=== PATIENT | female | born 2005 | race Caucasian/White ===

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

== ENCOUNTER → 2023-01-07 12:59 | Outpatient (CLI) | payer OTHER, BC, SELFPAY ==
--- NOTE | 2023-01-07 13:03 | US_ITS ---
FINAL REPORT CLINICAL HISTORY: PELVIC AND PERINEAL PAIN FINDINGS: Transvaginal sonographic images of the pelvis were obtained. The uterus measures 8.4 x 4.6 x 3.4 cm. The endometrium measures 8 mm, which is within normal limits. No uterine mass is identified. The right ovary measures 2.7 cm in length and left ovary measures 3.4 cm in length. Normal blood flow seen to the ovaries. There are small cysts or follicles in both ovaries. There is a small amount of free fluid in the cul-de-sac which is probably physiologic. IMPRESSION: Small cysts or follicles in both ovaries. Small amount of free fluid in cul-de-sac is probably physiologic. Reviewed, Interpreted and Dictated by Mark Collazo MD Transcribed by Johanna Sinclair Authenticated and [facility]
== END ==
PROVIDERS: PCP Nurse Practitioner Family; Visit Provider Nurse Practitioner Family
DX: R10.2 Pelvic and perineal pain (principal)
CPT/HCPCS: 76830

== ENCOUNTER 2023-01-26 01:40 | Emergency (ER) | payer OTHER, BC, SELFPAY ==
[2023-01-26 01:43] VITALS: BP 131/76; PULSE 97; RESP 16; TEMP 36.8; O2SAT 99; BMI 27.6
[2023-01-26 02:11] LABS: Coronavirus 19, PCR Not Detected (NotDetected); Influenza A, PCR Not Detected (NotDetected); Influenza B, PCR Not Detected (NotDetected)
[2023-01-26 02:18] LABS: Strep Scrn Group A (Rapid) Negative (Negative)
[2023-01-26 02:33] LABS: Urine Pregnancy, HCG Qual. Positive (Negative)
--- NOTE | 2023-01-26 02:51 | HMH.EDURI ---
Discharge Plan Disposition Patient Disposition: Home, Self-Care Chief Complaint: Upper Respiratory Infection Prescriptions Prescriptions: No Action Zyrtec 10 mg capsule 10 mg PO DAILY PRN ergocalciferol (vitamin D2) 1,250 mcg (50,000 unit) capsule 1,250 mcg PO DAILY Nexplanon 68 mg implant subdermal Referrals Follow up/Referrals: Marcello Box APRN [Primary Care Provider] - See instructions Kelley Roberts DO [Staff Physician] - See instructions Clinical Impressions Clinical Impression: Pharyngitis, Instructions Patient Instructions: Diet, DI for Pharyngitis/Tonsillopharyngitis -- Adult Discharge ED Provider: Ramiro (ED)Dinesh URI/Sore Throat HPI General Chief Complaint: Upper Respiratory Infection Stated Complaint: sore throat,nausea,chills,cough Time Seen by Provider: 01/26/23 02:51 Mode of Arrival: Ambulatory Source of Information: Patient and Medical Record Limitations: No Limitations Description of Symptoms (Recalled from ER Triage Doc. by RN): Pt arrives to ED with c/o a cough, sore throat, nausea and a runny nose since that has gotten progressively worse. Denies vomiting. 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 few days assoc with nausea - no rash but has nausea MD Complaint: sore throat Onset (ago): day(s) Duration: intermittent Severity: moderate Able to tolerate fluids by mouth: Yes Associated symptoms: denies other symptoms Treatments prior to arrival: acetaminophen Related Data Home Medications Medication Instructions Recorded Confirmed cetirizine 10 mg capsule (Zyrtec) 10 mg PO DAILY PRN 10/16/21 11/20/22 ergocalciferol (vitamin D2) 1,250 1,250 mcg PO DAILY 11/20/22 11/20/22 mcg (50,000 unit) capsule etonogestrel 68 mg subdermal subdermal 11/20/22 11/20/22 implant (Nexplanon) Allergies Allergy/AdvReac Type Severity Reaction Status Date / Time No Known Allergies Allergy Verified 11/20/22 09:22 [facility] Disclaimer: The information contained in this section may have been updated after the patient was seen, as this information can be updated by other users. Medical History (Updated 04/10/23 @ 02:57 by Dinesh Rubio (ED)MD) Deep dyspareunia Dysmenorrhea Encounter for Nexplanon removal Endometriosis History of hypothyroidism Surgical History History of tonsillectomy Family History Other Asthma Diabetes Heart attack Hypertension Social History Smoking Status: Never smoker alcohol intake: never substance use type: denies use current occupational status: student Travel in the last 8 weeks: None household members: family housing: house ROS Obtained: Yes All systems reviewed & no additional complaints except as documented Physical Exam General General appearance: alert Head Head exam: normocephalic Eye Eye exam: Present PERRL and EOMI ENT ENT exam: Present normal oropharynx and mucous membranes moist Neck Neck exam: Present trachea midline Respiratory Respiratory exam: Absent respiratory distress Cardiovascular Cardiovascular exam: Present regular rate Abdominal Exam Abdominal exam: Present soft Extremities Exam Extremities exam: Present full ROM Neurological Exam Neurological exam: Present alert, oriented X3 and CN II-XII intact; Absent motor sensory deficit Psychiatric Psychiatric exam: Present normal affect Skin Skin exam: Absent rash Lymphatic Lymphatic Findings: no adenopathy Medical Decision Making Medical Records Medical records reviewed: Yes I reviewed the patient's medical records. Carlos Inquiry Pt receiving controlled substance: No Vital Signs: 01/26/23 01:43 Temperature 98.3 F Temperature Source Oral Pulse Rate [Right] 97 H Respiratory Rate 16
[2023-01-26 03:08] VITALS: BP 112/68; PULSE 67; RESP 16; TEMP 37; O2SAT 98
== END 2023-01-26 03:10 | disposition home or self-care (01) ==
PROVIDERS: Emergency Provider Emergency Medicine; PCP Nurse Practitioner Family
DX: O26.891 Other specified pregnancy related conditions, first trimester (principal); J02.9 Acute pharyngitis, unspecified; Z3A.00 Weeks of gestation of pregnancy not specified
CPT/HCPCS: 81025; 87430; 99283; 99284; C9803; U0003; U0005

== ENCOUNTER → 2023-01-27 14:54 | Outpatient (CLI) | payer OTHER, BC, SELFPAY ==
[2023-01-27 16:10] LABS: HCG,Quantitative 12124 mIU/ml (0-5.42)
[2023-01-29 10:33] LABS: Progesterone 10.1 ng/mL (.)
== END ==
PROVIDERS: PCP Nurse Practitioner Family; Visit Provider Obstetrics & Gynecology
DX: N92.6 Irregular menstruation, unspecified (principal); Z32.00 Encounter for pregnancy test, result unknown
CPT/HCPCS: 36415; 84144; 84702

== ENCOUNTER → 2023-02-16 16:41 | Outpatient (CLI) | payer OTHER, BC, SELFPAY ==
[2023-02-16 17:25] LABS: Basophils % 0.2 % (0.1-2.0); Eosinophils # 0.1 K/mm3 (0.0-0.4); Eosinophils % 0.6 % (0.1-12.0); Hematocrit 37.9 % (37.0-47.0); Hemoglobin 12.8 g/dL (12.2-16.2); Lymphocytes # 2.3 K/mm3 (0.7-4.5); Lymphocytes % 23.1 % (10-50); Mean Corpuscular HGB Conc 33.9 g/dL (31.8-35.4); Mean Corpuscular Hemoglobin 29.1 pg (27.0-31.2); Mean Corpuscular Volume 85.9 fl (81-99); Mean Platelet Volume 8.2 fl (7.4-10.4); Monocytes # 0.4 K/mm3 (0.1-1.0); Monocytes % 4.2 % (1.7-9.3); Neutrophils # 7.1 K/mm3 (1.8-7.8); Neutrophils % 71.8 % (37.0-80.0); Platelet Count 249 K/mm3 (142-424); Red Blood Count 4.41 M/mm3 (4.20-5.40); Red Cell Distribution Width 14.1 % (11.5-17.5); White Blood Count 9.9 K/mm3 (4.5-13.0)
[2023-02-18 10:05] LABS: Rubella Antibodies, IgG 9.49 index (Immune >0.99)
[2023-02-18 13:51] LABS: Rapid Plasma Reagin Ab Titer Non Reactive (NonRea<1:1)
[2023-02-19 21:16] LABS: Neisseria gonorrhoeae, NAA Negative (Negative)
[2023-02-27 20:48] LABS: HIV Screen 4th Generation wRfx Non Reactive; Hepatitis B Surface Antigen Negative
[2023-02-27 20:49] LABS: Hepatitis C Antibody Negative
== END ==
PROVIDERS: PCP Nurse Practitioner Family; Visit Provider Obstetrics & Gynecology
DX: Z34.90 Encounter for supervision of normal pregnancy, unspecified, unspecified trimester (principal)
CPT/HCPCS: 36415; 85025; 86593; 86703; 86762; 86850; 86870; 87086; 87088; 87186; 87340; 87380; 87491; 87591; G0432

== ENCOUNTER 2023-03-23 10:35 | Emergency (ER) | payer OTHER, BC, SELFPAY ==
[2023-03-23 10:50] VITALS: BP 111/68; PULSE 104; RESP 18; TEMP 36.9; O2SAT 98; BMI 25.5
--- NOTE | 2023-03-23 11:05 | EXP.UTC ---
Discharge Plan Disposition Patient Disposition: Home, Self-Care Condition: Good Prescriptions Prescriptions: New fluticasone propionate [Flonase Allergy Relief] 50 mcg/actuation spray,suspension 1 - 2 spray intranasal DAILY Qty: 16 0RF Rx Instructions: administer into each nostril daily No Action PNV no.732-ucie-zncuy acid 28 mg iron- 800 mcg tablet 1 tab PO DAILY Zyrtec 10 mg capsule 10 mg PO DAILY Referrals Follow up/Referrals: Marcello Box APRN [Primary Care Provider] - See instructions Activity Restrictions/Add. Instructions Additional Instructions/Restrictions: *Monitor Temp, Over the counter Tylenol as directed/as needed Tylenol every 4 hours (as long as your family doctor has told you that you can take it) for fever or pain. and straight to ER if unable to lower temp less than 101.0 after medication given *Warm salt water gargles may help to soothe the throat if your throat is hurting? Saline nasal spray may help with sinus congestion *Sleep elevated *Humidifier/Vaporizer *Flonase 2 sprays in each nostril daily but be aware that it may take 2-3 days before you notice improvement Follow up IMMEDIATELY for new or worsening symptoms or no Noticeable improvement over the next 48-72 hours. 911 for difficulty breathing or swallowing Speak with your OBGYN about other over the counter medications that you may be able to take Clinical Impressions Clinical Impression: Allergic rhinitis Instructions Patient Instructions: Allergic Rhinitis, Fluticasone Nasal [place] Discharge ED Provider: Cheryl Rivers [facility] General Stated complaint: Drainage congestion cough Mode of Arrival: Ambulatory Source of Information: Patient Limitations: No Limitations Time Seen by Provider: 03/23/23 11:05 Description of Symptoms (Recalled from Triage Doc. by RN): PATIENT C/O RUNNY NOSE, CONGESTION, COUGH, AND BODY ACHES X 1 WEEK HEENT Symptoms (Recalled from RN notes): Yes Resp Symptoms (Recalled from RN notes): Yes Skin Symptoms (Recalled from RN notes): No MS Symptoms (Recalled from RN notes): No Functional Status (Recalled from RN notes): WNL History of Present Illness Provider Complaint: Patient states that she is 14wks OB States that she has been having nasal congestion for over a week with clear drainage, cough, feeling achy and little headache States that she wasnt sure if it was her allergies or the flu and she wanted to get tested for the flu, Denies sore throat, denies fever Related Data Home Medications Medication Instructions Recorded Confirmed cetirizine 10 mg capsule (Zyrtec) 10 mg PO DAILY Allergy symptoms 10/16/21 03/23/23 vitamins no.121-iron 28 1 tab PO DAILY Supplement 02/16/23 03/23/23 mg-folic acid 800 mcg tablet Previous Rx's Medication Instructions Recorded fluticasone propionate 50 1 - 2 spray intranasal DAILY #16 03/23/23 mcg/actuation nasal grams spray,suspension (Flonase Allergy Relief) Allergies Allergy/AdvReac Type Severity Reaction Status Date / Time No Known Allergies Allergy Verified 02/16/23 15:40 Worker's Comp Is this a Worker's Comp case?: No [facility] Disclaimer: The information contained in this section may have been updated after the patient was seen, as this information can be updated by other users. Medical History (Updated 03/23/23 @ 11:18 by Cheryl Rivers APRN) Deep dyspareunia Dysmenorrhea Encounter for Nexplanon removal Endometriosis GBS bacteriuria History of hypothyroidism Surgical History History of tonsillectomy Family History Other Asthma Diabetes Heart attack Hypertension Social History Smoking Status: Never smoker alcohol intake: never substance use type: denies use current occupational status: student Travel in the
[2023-03-23 11:09] LABS: UTC Influenza A Antigen Negative (Negative); UTC Influenza B Antigen Negative (Negative)
[2023-03-23 11:20] VITALS: BP 111/68; PULSE 104; RESP 18; TEMP 36.9; O2SAT 98
== END 2023-03-23 11:23 | disposition home or self-care (01) ==
PROVIDERS: Emergency Provider Nurse Practitioner; PCP Nurse Practitioner Family
DX: O26.892 Other specified pregnancy related conditions, second trimester (principal); O99.512 Diseases of the respiratory system complicating pregnancy, second trimester; J30.9 Allergic rhinitis, unspecified; Z3A.14 14 weeks gestation of pregnancy
CPT/HCPCS: 87804; 99212; 99213; G0463

== ENCOUNTER → 2023-05-07 14:00 | Outpatient (CLI) | payer OTHER, BC, SELFPAY ==
--- NOTE | 2023-05-07 14:00 | US_ITS ---
PROCEDURE: US OB /MATERNAL DETAIL CLINICAL INDICATION: 20 week anatomy scan COMPARISON: None FINDINGS: From her established due date she is 20 weeks 1 day. Single viable intrauterine gestation. Cephalic position. Placenta: Anteriorplacenta grade 1. There is average amount fluid. The cervix appears satisfactory. Closed and measuring 3.1 cm in length. Complete survey performed and was unremarkable on the submitted images as in PACS. No discrete anomalies identified on survey imaging by technologist. Active fetus. Three-vessel cord with satisfactory umbilical cord insertion. 4- chamber heart noted. [place]. LVOT, RVOT, aortic arch appear normal. Survey of brain & ventricles Unremarkable. Cerebellum, cisterna magna, thalamus, choroid plexus appear normal. Face and neck survey unremarkable. Lips and nose were not well visualized. Profile and nasion appear normal. Diaphragm and chest views unremarkable. Abdomen: Both kidneys noted and unremarkable. Stomach and bladder noted and satisfactory. Spine: Survey of the spine satisfactory with no anomalies identified nor imaged. Upper, thoracic and lower spine appear normal. Both arms and legs noted. Amniotic Fluid: Adequate. Measurements: Average ultrasound age 20weeks 1day. Estimated due date by ultrasound age 1209/23/2023. Estimated weight 310g BPD = 20weeks 5days OFD = 20weeks 5days HC = 20weeks AC = 20weeks FL = 19weeks 3days Growth Percentile= 25 Heart Rate = 147bpm Cerebellum = 19weeks 5days HC/AC is 1.19 CI is 0.79 FL/BPD is 0.62 FL/AC is 0.21 IMPRESSION: 1. Viable fetus in the cephalic presentation with an anterior placenta grade 1. 2. Fluid is within normal limits. 3. Anatomical scan from the images submitted in PACS appears normal. 4. The nose and lips could not be well visualized due to position. Suggest repeat ultrasound at 24 weeks to complete this anatomical survey. Dictated by: Rich Guerra MD 05/08/2023 09:24 Rich Guerra MD in [place] 05/08/2023 09:24
== END ==
PROVIDERS: PCP Nurse Practitioner Family; Visit Provider Obstetrics & Gynecology
DX: Z34.92 Encounter for supervision of normal pregnancy, unspecified, second trimester (principal); Z3A.20 20 weeks gestation of pregnancy
CPT/HCPCS: 76811

== ENCOUNTER → 2023-06-01 12:48 | Outpatient (CLI) | payer OTHER, BC, SELFPAY ==
--- NOTE | 2023-06-01 13:20 | US_ITS ---
PROCEDURE: US OB FOLLOW UP CLINICAL INDICATION: ultrsound to re-check anatomy COMPARISON: US US OB /MATERNAL DETAIL from 05/07/2023 FINDINGS: Transabdominal sonographic images of the uterus were obtained. The following parameters are obtained: From her established due date she is 23weeks 5days Viable fetus in the cephalic presentation with an anterior placenta grade 1. The fluid appears normal. Cervix measures 3.0 cm. heart rate: 143bpm bpm. BPD: 23weeks 6days HC: 24weeks 4days AC: 24weeks 1day FL: 23weeks 2days HC/AC: 1.16 Cephalic index: FL/BPD: 0.71 FL/AC: 0.21 No obvious anomalies evident. profile seen, lips and nose appeared normal. Three-vessel cord, stomach, bladder, kidneys, situs heart, four chamber view appear normal. IMPRESSION: 1. Lips and nose appear normal that were not seen well in her initial anatomy scan. 2. Other limited anatomy appeared normal. 3. There has been good interval growth. Dictated by: Rich Guerra MD 06/02/2023 13:24 Rich Guerra MD in [place] 06/02/2023 13:24
== END ==
PROVIDERS: PCP Nurse Practitioner Family; Visit Provider Obstetrics & Gynecology
DX: R93.89 Abnormal findings on diagnostic imaging of other specified body structures (principal)
CPT/HCPCS: 76816

== ENCOUNTER → 2023-06-17 07:04 | Outpatient (CLI) | payer OTHER, BC, SELFPAY ==
[2023-06-17 07:26] LABS: Basophils % 0.2 % (0.1-2.0); Eosinophils # 0.2 K/mm3 (0.0-0.4); Eosinophils % 2.5 % (0.1-12.0); Hematocrit 34.4 % (37.0-47.0); Hemoglobin 11.5 g/dL (12.2-16.2); Lymphocytes # 1.5 K/mm3 (0.7-4.5); Lymphocytes % 16.5 % (10-50); Mean Corpuscular HGB Conc 33.5 g/dL (31.8-35.4); Mean Corpuscular Hemoglobin 30.8 pg (27.0-31.2); Mean Corpuscular Volume 92.1 fl (81-99); Mean Platelet Volume 8.2 fl (7.4-10.4); Monocytes # 0.4 K/mm3 (0.1-1.0); Monocytes % 4.7 % (1.7-9.3); Neutrophils % 76.1 % (37.0-80.0); Platelet Count 248 K/mm3 (142-424); Red Blood Count 3.74 M/mm3 (4.20-5.40); White Blood Count 9.2 K/mm3 (4.5-13.0)
[2023-06-17 07:42] LABS: Glucose,Fasting 90 mg/dl (74-100)
[2023-06-17 09:23] LABS: Glucose 1 Hour 89 mg/dL (74-100)
== END ==
PROVIDERS: PCP Nurse Practitioner Family; Visit Provider Obstetrics & Gynecology
DX: Z34.92 Encounter for supervision of normal pregnancy, unspecified, second trimester (principal); Z3A.26 26 weeks gestation of pregnancy
CPT/HCPCS: 36415; 82951; 85025

== ENCOUNTER 2023-08-14 09:40 | Outpatient (CLI) | payer OTHER, BC, SELFPAY ==
[2023-08-14 09:45] VITALS: BP 127/76; PULSE 102; RESP 18; TEMP 36.9; O2SAT 99; BMI 32.1
[2023-08-14 10:17] VITALS: BMI 32.2
[2023-08-14 10:43] LABS: Microscopic, Urine URINE MICROSCOPIC (MICROSCOPIC)
[2023-08-14 10:53] LABS: Appearance,Urine CLEAR (Clear); Bilirubin,Urine Negative (Negative); Blood, Urine Negative (Negative); Color,Urine YELLOW (Yellow); Glucose,Urine (UA) Negative (Negative); Ketones,Urine Negative (Negative); Leukocyte Esterase,Urine TRACE (Negative); Nitrate,Urine Negative (Negative); Protein,Urine Negative (Negative); Specific Gravity, Urine 1.025 (1.005-1.030); Urobilinogen,Urine 0.2 EU/dl (0.2)
[2023-08-14 11:15] LABS: Benzodiazepines Screen,Urine Negative ng/ml (<200)
[2023-08-14 11:16] LABS: Amphetamine/Metha Screen,Urine Negative ng/ml (<1000); Barbiturates Screen,Urine Negative ng/ml (<200)
[2023-08-14 11:17] LABS: Cannabinoid Screen,Urine Negative ng/ml (<50)
[2023-08-14 11:18] LABS: Cocaine Screen,Urine Negative ng/ml (<300); Methadone Screen,Urine Negative ng/ml (<300)
[2023-08-14 11:19] LABS: Opiate Screen,Urine Negative ng/ml (<300)
[2023-08-14 11:20] LABS: Phencyclidine Screen,Urine Negative ng/ml (<25)
[2023-08-14 11:42] LABS: Bacteria,Urine 1+ /lpf
== END 2023-08-14 12:15 | disposition home or self-care (01) ==
LOC: OBOUT 09:42 → OB 10:13
PROVIDERS: PCP Nurse Practitioner Family; Visit Provider Obstetrics & Gynecology
DX: O26.893 Other specified pregnancy related conditions, third trimester (principal); Z3A.34 34 weeks gestation of pregnancy
CPT/HCPCS: 59025; 80305; 81001; G0463

== ENCOUNTER → 2023-08-25 12:44 | Outpatient (CLI) | payer OTHER, BC, SELFPAY ==
[2023-08-25 17:34] LABS: Basophils % 0.1 % (0.1-2.0); Eosinophils # 0.2 K/mm3 (0.0-0.4); Eosinophils % 1.9 % (0.1-12.0); Hemoglobin 9.6 g/dL (12.2-16.2); Lymphocytes # 1.2 K/mm3 (0.7-4.5); Lymphocytes % 12.4 % (10-50); Mean Corpuscular HGB Conc 34.8 g/dL (31.8-35.4); Mean Corpuscular Hemoglobin 29.6 pg (27.0-31.2); Mean Corpuscular Volume 85.1 fl (81-99); Mean Platelet Volume 11.2 fl (7.4-10.4); Monocytes # 0.6 K/mm3 (0.1-1.0); Monocytes % 5.8 % (1.7-9.3); Neutrophils # 7.5 K/mm3 (1.8-7.8); Neutrophils % 79.8 % (37.0-80.0); Platelet Count 205 K/mm3 (142-424); Red Blood Count 3.23 M/mm3 (4.20-5.40); White Blood Count 9.4 K/mm3 (4.5-13.0)
[2023-08-25 17:44] LABS: Hematocrit 27.5 % (37.0-47.0)
== END ==
PROVIDERS: PCP Nurse Practitioner Family; Visit Provider Obstetrics & Gynecology
DX: Z34.93 Encounter for supervision of normal pregnancy, unspecified, third trimester (principal); Z3A.36 36 weeks gestation of pregnancy
CPT/HCPCS: 36415; 85025

== ENCOUNTER → 2023-08-27 23:42 | Outpatient (CLI) | payer OTHER, BC, SELFPAY | PROVIDERS: PCP Nurse Practitioner Family; Visit Provider Obstetrics & Gynecology | DX: Z34.93 Encounter for supervision of normal pregnancy, unspecified, third trimester (principal); Z3A.36 36 weeks gestation of pregnancy | CPT/HCPCS: 86403 ==

== ENCOUNTER → 2023-09-07 11:35 | Outpatient (CLI) | payer OTHER, BC, SELFPAY ==
[2023-09-07 12:08] LABS: Basophils % 0.1 % (0.1-2.0); Eosinophils # 0.1 K/mm3 (0.0-0.4); Eosinophils % 0.7 % (0.1-12.0); Hematocrit 31.4 % (37.0-47.0); Hemoglobin 10.7 g/dL (12.2-16.2); Lymphocytes # 1.3 K/mm3 (0.7-4.5); Lymphocytes % 14.9 % (10-50); Mean Corpuscular HGB Conc 33.9 g/dL (31.8-35.4); Mean Corpuscular Hemoglobin 28.6 pg (27.0-31.2); Mean Corpuscular Volume 84.3 fl (81-99); Mean Platelet Volume 9.7 fl (7.4-10.4); Monocytes # 0.6 K/mm3 (0.1-1.0); Monocytes % 6.3 % (1.7-9.3); Neutrophils # 6.9 K/mm3 (1.8-7.8); Platelet Count 204 K/mm3 (142-424); Red Blood Count 3.73 M/mm3 (4.20-5.40); Red Cell Distribution Width 17.7 % (11.5-17.5); White Blood Count 8.9 K/mm3 (4.5-13.0)
[2023-09-07 12:50] LABS: Alanine Aminotransferase 20 U/L (12-78); Albumin Level 3.5 g/dl (3.5-5.0); Albumin/Globulin Ratio 1.3 (1.1-1.8); Alkaline Phosphatase 144 U/L (38-126); Anion Gap 12.1 mEq/L (5-15); Aspartate Amino Transferase 32 U/L (14-36); Bilirubin,Total 0.4 mg/dl (0.2-1.3); Blood Urea Nitrogen 7 mg/dl (7-17); Carbon Dioxide 21 mmol/L (22.0-30.0); Chloride 106 mmol/L (98-107); Estimated Glomerular Filt Rate 159 ml/min (>60); GFR (African American) 192 ML/MIN (>60); Globulin 2.8 g/dL (1.3-3.2); Glucose 73 mg/dl (74-100); Potassium 4.1 mmoL/L (3.5-5.1); Sodium 135 mmol/L (136-145); Total Protein,Serum 6.3 g/dl (6.3-8.2); Uric Acid 3.6 mg/dl (2.5-6.2)
[2023-09-07 13:12] LABS: Creatinine,Urine Random 60 mg/dL (Not Estab.)
== END ==
PROVIDERS: PCP Nurse Practitioner Family; Visit Provider Obstetrics & Gynecology
DX: O16.3 Unspecified maternal hypertension, third trimester (principal); Z3A.37 37 weeks gestation of pregnancy
CPT/HCPCS: 36415; 80053; 82043; 82570; 84550; 85025

== ENCOUNTER 2023-09-08 14:05 | Inpatient (IN) | payer OTHER, BC, SELFPAY ==
[2023-09-08 14:25] VITALS: BMI 33.6
[2023-09-08 15:34] LABS: Microscopic, Urine URINE MICROSCOPIC (MICROSCOPIC)
[2023-09-08 15:35] LABS: Basophils % 0.2 % (0.1-2.0); Eosinophils # 0.1 K/mm3 (0.0-0.4); Eosinophils % 0.8 % (0.1-12.0); Hematocrit 28.7 % (37.0-47.0); Hemoglobin 10.2 g/dL (12.2-16.2); Lymphocytes # 1.2 K/mm3 (0.7-4.5); Lymphocytes % 13.5 % (10-50); Mean Corpuscular HGB Conc 35.5 g/dL (31.8-35.4); Mean Corpuscular Hemoglobin 30.3 pg (27.0-31.2); Mean Corpuscular Volume 85.4 fl (81-99); Monocytes # 0.3 K/mm3 (0.1-1.0); Monocytes % 3.9 % (1.7-9.3); Neutrophils # 7.1 K/mm3 (1.8-7.8); Neutrophils % 81.6 % (37.0-80.0); Platelet Count 196 K/mm3 (142-424); Red Blood Count 3.36 M/mm3 (4.20-5.40); Red Cell Distribution Width 17.8 % (11.5-17.5); White Blood Count 8.7 K/mm3 (4.5-13.0)
[2023-09-08 15:41] LABS: Appearance,Urine CLEAR (Clear); Bilirubin,Urine Negative (Negative); Blood, Urine Negative (Negative); Color,Urine YELLOW (Yellow); Glucose,Urine (UA) Negative (Negative); Ketones,Urine Negative (Negative); Leukocyte Esterase,Urine 1+ (Negative); Nitrate,Urine Negative (Negative); PH,Urine 6.5 (5.0-8.5); Protein,Urine 1+ (Negative); Specific Gravity, Urine 1.015 (1.005-1.030); Urobilinogen,Urine 0.2 EU/dl (0.2)
[2023-09-08 15:53] LABS: Amphetamine/Metha Screen,Urine Negative ng/ml (<1000)
[2023-09-08 15:54] LABS: Barbiturates Screen,Urine Negative ng/ml (<200)
[2023-09-08 15:55] LABS: Benzodiazepines Screen,Urine Negative ng/ml (<200); Cannabinoid Screen,Urine Negative ng/ml (<50)
[2023-09-08 15:56] LABS: Cocaine Screen,Urine Negative ng/ml (<300); Methadone Screen,Urine Negative ng/ml (<300)
[2023-09-08 15:57] LABS: Opiate Screen,Urine Negative ng/ml (<300)
[2023-09-08 15:58] LABS: Phencyclidine Screen,Urine Negative ng/ml (<25)
[2023-09-08 16:22] LABS: Bacteria,Urine 1+ /lpf
[2023-09-08 17:35] VITALS: BP 140/82; PULSE 101; RESP 18; TEMP 36.8; O2SAT 100; BMI 33.6
--- NOTE | 2023-09-09 07:31 | HMH.PHAINT1 ---
Pharmacy Intervention Comments: MEDICATION RECONCILIATION COMPLETED ON PATIENT USING EXTERNAL FILL HISTORY FROM PHARMACY. -SULY HUSSEIN, [facility]
[2023-09-09 08:00] VITALS: BP 125/74; PULSE 96; RESP 18; TEMP 36.8; O2SAT 99
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
--- NOTE | 2023-09-09 17:20 | EXP.DN ---
Delivery Note Delivery Date:: 09/09/23 Delivery Time:: 16:53 Anesthesia Type: Epidural Was labor medically induced?: Yes Induction method: per misoprostol protocol Gestational age (weeks): 38 Infant delivered prior to 39 weeks?: Yes Justification for early elective delivery:: Gestational Hypertension Gender: Female at 1 minute: 7 at 5 minutes: 9 LAC or MLE?: LAC Delivery Procedure:: Mom complete with epidural. Pushed for approximately 43 minutes. Head delivered spontaneously over intact perineum in GILBERT position. Nuchal cord delivered through. Anterior shoulder delivered with gentle downward pressure. Posterior shoulder and remainder of body delivered spontaneously. Baby placed on maternal abdomen, mouth and nares bulb suctioned, warmed/dried and stimulated. Delayed cord clamping was performed for 60 seconds. Cord was clamped and cut by father of baby. Cord blood was obtained. Placenta delivered spontaneously and intact. Placenta will be sent to pathology for review. Placental calcifications and thin umbilical cord noted. Bilateral labial lacerations repaired with 3-0 Vicryl. Hemostasis noted. Mom and baby were skin to skin and doing well after delivery. Live female baby (baby's name is Vanda Estrada) APGARs 7 (1 min), 9 (5 min) EBL 400 mL Laceration:: labial Placental Delivery Description: Spontaneous
[2023-09-10 04:14] VITALS: BP 131/83; PULSE 84; RESP 17; TEMP 36.9; O2SAT 99
[2023-09-10 07:59] LABS: Basophils % 0.1 % (0.1-2.0); Eosinophils # 0.1 K/mm3 (0.0-0.4); Eosinophils % 0.8 % (0.1-12.0); Hemoglobin 9.8 g/dL (12.2-16.2); Lymphocytes # 1.2 K/mm3 (0.7-4.5); Lymphocytes % 10.3 % (10-50); Mean Corpuscular HGB Conc 32.8 g/dL (31.8-35.4); Mean Corpuscular Hemoglobin 28.6 pg (27.0-31.2); Mean Corpuscular Volume 87.4 fl (81-99); Mean Platelet Volume 9.9 fl (7.4-10.4); Monocytes # 0.6 K/mm3 (0.1-1.0); Neutrophils # 9.4 K/mm3 (1.8-7.8); Neutrophils % 83.8 % (37.0-80.0); Platelet Count 176 K/mm3 (142-424); Red Blood Count 3.43 M/mm3 (4.20-5.40); White Blood Count 11.2 K/mm3 (4.5-13.0)
--- NOTE | 2023-09-10 11:23 | EXP.PN ---
Subjective *Date: 09/11/23 *Time: 11:56 Interval history: Alise is a 17-year-old G1, P1 day #1 following a normal spontaneous vaginal delivery at 38.0 weeks gestation. was gestational hypertension and GBS bacteriuria. Routine delivery and course. Patient reports that she is doing well and has some and abdominal cramping. Patient reports that the ibuprofen and Tylenol is relieving her pain. Patient reports that her appetite is slowly returning and she is tolerating p.o. without nausea or vomiting. Reports her lochia is scant. She is breast-feeding her female infant. Ambulating, voiding difficulty or dysuria. Denies chest pain shortness of breath or pain in her legs. No further complaints at this time. Exam Data for Last 24 hours Vital signs and Labs for Last 24 Hours: Temp Pulse Resp BP Pulse Ox O2 Del Method 98.5 F 84 17 131/83 99 Room Air 09/10/23 04:14 09/10/23 04:14 09/10/23 04:14 09/10/23 04:14 09/10/23 04:14 09/10/23 04:14 Laboratory Results - last 24 hr 09/10/23 07:45: WBC 11.2 D, RBC 3.43 L, Hgb 9.8 L, Hct 30.0 L, MCV 87.4, MCH 28.6, MCHC 32.8, RDW 18.0 H, Plt Count 176, MPV 9.9, Neut % (Auto) 83.8 H, Lymph % (Auto) 10.3, [place] % (Auto) 5.0, Eos % (Auto) 0.8, Baso % (Auto) 0.1, Neut # (Auto) 9.4 H, Lymph # (Auto) 1.2, [place] # (Auto) 0.6, Eos # (Auto) 0.1, Baso # (Auto) 0.0 I & O for Last 24 hours: Intake & Output 09/07/23 09/08/23 09/09/23 09/10/23 23:59 23:59 23:59 23:59 Weight 196 lb Narrative: General: patient is alert oriented in no acute distress and responds appropriately to questions. Appears to be in minimal pain. HEENT: NCAT, EOMI, moist mucous membranes, neck supple with full ROM Cardiovascular: RRR +S1/S2, no murmurs or rubs Pulmonary: Clear to auscultation bilaterally, nonlabored breathing, symmetric chest rise Abdominal: Fundus below the umbilicus, firm, and tenderness appropriate for the period. Extremities: trace edema, no tenderness or cyanosis noted Skin: Normal turgor, intact, warm. Negative for erythema, pallor, petechia, or lesions Neurologic: Negative for sensory or motor deficit Psychiatric: Normal affect, normal thought process, good judgment and insight, no depression or anxious mood appreciated. Constitutional Constitutional: no acute distress *Routine HEENT Exam Head: Present normocephalic Eye: Present EOMI and PERRL ENT: Present mucous membranes moist *Routine Neck Exam Neck: Present supple; Absent lymphadenopathy *Routine Respiratory Exam Respiratory: Present CTA bilaterally *Routine Cardiovascular Exam Cardiovascular: Present RRR *Routine Abdominal Exam Abdominal: Present soft and normoactive bowel sounds; Absent tenderness *Routine Extremities Exam Extremities: Absent cyanosis, clubbing or edema *Routine Skin Exam Skin: Present warm; Absent rash *Routine Neurological Exam Neurological: Present alert and oriented X3 Assessment and Plan *Assessment and plan (1) 38 weeks gestation of : Status: Acute Category: Medical Code(s): Z3A.38 - 38 weeks gestation of (2) Gestational hypertension: Status: Acute Qualifiers: Trimester: third trimester Qualified Code(s): O13.3 - Gestational [-induced] hypertension without significant proteinuria, third trimester Category: Medical Code(s): O13.9 - Gestational [-induced] hypertension without significant proteinuria, unspecified trimester (3) Anemia affecting : Status: Acute Qualifiers: Trimester: unspecified trimester Qualified Code(s): O99.019 - Anemia complicating , unspecified trimester Category: Medical Code(s): O99.019 - Anemia complicating , unspecified trimester (4) Anxiety during , antepartum: Status: Acute Category: Medical Code(s): O99.340 - Other mental disorders complicating preg
[2023-09-10 20:24] VITALS: BP 121/66; PULSE 86; RESP 18; TEMP 36.9; O2SAT 97
[2023-09-11 08:00] VITALS: BP 128/69; PULSE 83; RESP 18; TEMP 36.8; O2SAT 97
--- NOTE | 2023-09-11 12:05 | EXP.DC.SUM ---
General Admission date:: 09/08/23 Discharge date: 09/11/23 HPI HPI HPI: Mrs Priscila Andrews is a 17 yo at 38w0d admitted to [facility] Labor and Delivery for scheduled induction of labor secondary to new onset GHTN. BP mild range. She is not taking any medication for BP. Baby is active. Reports swelling in hands and feet. Admits to intermittent headaches that come and go spontaneously. She does not take medication for them. GBS bactiuria in early . Hospital Course Hospital Course Hospital Course: Priscila is a 17-year-old G1, P1 day #2 following a normal spontaneous vaginal delivery at 38.0 weeks gestation. was gestational hypertension and GBS bacteriuria. Routine delivery and course. Patient reports that she is doing well and has some and abdominal cramping. Patient reports that the ibuprofen and Tylenol is relieving her pain. Patient reports that her appetite is slowly returning and she is tolerating p.o. without nausea or vomiting. Reports her lochia is scant. She is breast-feeding her female infant. Ambulating, voiding difficulty or dysuria. Denies chest pain shortness of breath or pain in her legs. No further complaints at this time. Patient desires discharge home today. All discharge instructions reviewed with patient in detail and she voiced understanding. Patient will follow-up in 2 weeks for routine visit with Dr. Roberts. Exam Data for Last 24 hours Vital signs and Labs for Last 24 Hours: Temp Pulse Resp BP Pulse Ox O2 Del Method 98.2 F 83 18 128/69 97 Room Air 09/11/23 08:00 09/11/23 08:00 09/11/23 08:00 09/11/23 08:00 09/11/23 08:00 09/11/23 08:00 I & O for Last 24 hours: Intake & Output 09/08/23 09/09/23 09/10/23 09/11/23 23:59 23:59 23:59 23:59 Weight 196 lb Narrative: General: patient is alert oriented in no acute distress and responds appropriately to questions. Appears to be in minimal pain. HEENT: NCAT, EOMI, moist mucous membranes, neck supple with full ROM Cardiovascular: RRR +S1/S2, no murmurs or rubs Pulmonary: Clear to auscultation bilaterally, nonlabored breathing, symmetric chest rise Abdominal: Fundus below the umbilicus, firm, and tenderness appropriate for the period. Extremities: trace edema, no tenderness or cyanosis noted Skin: Normal turgor, intact, warm. Negative for erythema, pallor, petechia, or lesions Neurologic: Negative for sensory or motor deficit Psychiatric: Normal affect, normal thought process, good judgment and insight, no depression or anxious mood appreciated. Constitutional Constitutional: no acute distress *Routine HEENT Exam Head: Present normocephalic Eye: Present EOMI and PERRL ENT: Present mucous membranes moist *Routine Neck Exam Neck: Present supple; Absent lymphadenopathy *Routine Respiratory Exam Respiratory: Present CTA bilaterally *Routine Cardiovascular Exam Cardiovascular: Present RRR *Routine Abdominal Exam Abdominal: Present soft and normoactive bowel sounds; Absent tenderness *Routine Extremities Exam Extremities: Absent cyanosis, clubbing or edema *Routine Skin Exam Skin: Present warm; Absent rash *Routine Neurological Exam Neurological: Present alert and oriented X3 DS: Diagnosis Discharge Diagnosis (1) 38 weeks gestation of : Status: Acute Code(s): Z3A.38 - 38 weeks gestation of (2) Gestational hypertension: Status: Acute Code(s): O13.9 - Gestational [-induced] hypertension without significant proteinuria, unspecified trimester Qualifiers: Trimester: third trimester Qualified Code(s): O13.3 - Gestational [-induced] hypertension without significant proteinuria, third trimester (3) Anemia affecting : Status: Acute Code(s): O99.019 - Anemia complicating , unspecified trimester Qualifiers: Trimester: unspecified trimester Qualifi
== END 2023-09-11 12:50 | disposition home or self-care (01) | DRG 807 ==
PROVIDERS: Admitting Provider Obstetrics & Gynecology; PCP Nurse Practitioner Family; Visit Provider Obstetrics & Gynecology
DX: O13.4 Gestational [pregnancy-induced] hypertension without significant proteinuria, complicating childbirth (principal); Z37.0 Single live birth; Z3A.38 38 weeks gestation of pregnancy; O99.824 Streptococcus B carrier state complicating childbirth; O99.02 Anemia complicating childbirth; O70.0 First degree perineal laceration during delivery; O99.344 Other mental disorders complicating childbirth; F41.1 Generalized anxiety disorder
CPT/HCPCS: 59409; 59025; 80305; 81001; 85025; 86850; 87086; 94761; G0283; J0290; J2405

== ENCOUNTER 2023-09-20 11:01 | Emergency (ER) | payer OTHER, BC, SELFPAY ==
[2023-09-20 11:40] VITALS: BP 139/91; PULSE 122; RESP 18; TEMP 37.7; O2SAT 96; BMI 31.3
--- NOTE | 2023-09-20 11:52 | EXP.UTC ---
Discharge Plan Disposition Patient Disposition: Home, Self-Care Condition: Good Prescriptions Prescriptions: New dicloxacillin 500 mg capsule 500 mg PO Q6H 10 Days Qty: 40 0RF No Action PNV no.215-snhz-gkmtz acid 28 mg iron- 800 mcg tablet 1 tab PO DAILY sertraline [Zoloft] 25 mg tablet 25 mg PO DAILY fluticasone propionate [Flonase Allergy Relief] 50 mcg/actuation spray,suspension 1 - 2 spray intranasal DAILY Rx Instructions: administer into each nostril daily ibuprofen 800 mg tablet 800 mg PO Q8H PRN (Reason: pain) Qty: 60 2RF ferrous sulfate 325 mg (65 mg iron) tablet,delayed release (DR/EC) 325 mg PO DAILY Qty: 30 3RF Referrals Follow up/Referrals: Marcello Box APRN [Primary Care Provider] - See instructions Activity Restrictions/Add. Instructions Additional Instructions/Restrictions: Drink plenty of fluids. Take tylenol or ibuprofen for pain or fever. Take the dicloxacillin as directed. It is safe to breastfeed while you are on this antibiotic. Follow up with your ob doctor tomorrow. Call her office in the morning to let them know what's going on and to get a follow up appointment. GO TO THE ER FOR ANY WORSENING SYMPTOMS Feed the on cue or express the volume of milk that the child needs. Minimize breast pump usage if possible (if you use one) and avoid use of nipple godfrey. ?For pain relief: -Topical ? Warm or cold compresses (ie, soak a cloth in warm or cold water and place it on the breast). While use of either heat or cold may reduce pain, applying cold may decrease associated tissue edema and inflammation [[email or web address]://[email or web address]/contents/lactational-mastitis/abstract/5]. Supporting data for both interventions are limited [[email or web address]://[email or web address]/contents/lactational-mastitis/abstract/28]. -Systemic ? Take tylenol or ibuprofen for pain/fever. ?Rest and drink plenty of fluids. ?Avoid deep massage (light sweeping of the skin similar to that for manual lymphatic drainage may be helpful ?Wear an appropriately fitting supportive bra (ie, not too tight). Clinical Impressions Clinical Impression: Mastitis Stand Alone Forms Stand Alone Forms: Work/School Release Instructions Patient Instructions: Mastitis, DI for Mastitis Discharge ED Provider: Andrews Milton [facility] [place] General Stated complaint: romeo, dizzyness fever breast pain Time Seen by Provider: 09/20/23 11:52 History of Present Illness Provider Complaint: She states that for the past 1 day she has had malaise, low grade fever, chills, body aches, and bilateral breast pain. She has a 2 week old baby that she breast feeds. She denies any breast redness and swollen areas. She is worried that she may have mastitis. She denies congestion, but she has had some nausea. Related Data Home Medications Medication Instructions Recorded Confirmed vitamins no.121-iron 28 1 tab PO DAILY Supplement 02/16/23 09/08/23 mg-folic acid 800 mcg tablet fluticasone propionate 50 1 - 2 spray intranasal DAILY 09/09/23 09/08/23 mcg/actuation nasal Allergy Symptoms spray,suspension (Flonase Allergy Relief) sertraline 25 mg tablet (Zoloft) 25 mg PO DAILY Mood 09/09/23 09/20/23 Previous Rx's Medication Instructions Recorded ferrous sulfate 325 mg (65 mg 325 mg PO DAILY #30 tabs 09/11/23 iron) tablet,delayed release ibuprofen 800 mg tablet 800 mg PO Q8H PRN pain #60 tabs 09/11/23 dicloxacillin 500 mg capsule 500 mg PO Q6H 10 days #40 caps 09/20/23 Allergies Allergy/AdvReac Type Severity Reaction Status Date / Time No Known Allergies Allergy Verified 09/20/23 12:02 [facility] Disclaimer: The information contained in this section may have been updated after the patient was seen, as this information can be updated by other users. Medical History (Updated 09/20/23 @ 13:59 by Andrews Milton APRN) 38 weeks gestation of Allergic rhini
[2023-09-20 12:08] LABS: UTC Strep Screen (Rapid) Negative (Negative)
[2023-09-20 12:09] LABS: UTC Influenza A Antigen Negative (Negative); UTC Influenza B Antigen Negative (Negative)
[2023-09-20 13:07] LABS: Basophils % 0.1 % (0.1-2.0); Eosinophils % 0.4 % (0.1-12.0); Hematocrit 36.3 % (37.0-47.0); Hemoglobin 11.8 g/dL (12.2-16.2); Lymphocytes # 0.7 K/mm3 (0.7-4.5); Lymphocytes % 8.8 % (10-50); Mean Corpuscular HGB Conc 32.6 g/dL (31.8-35.4); Mean Corpuscular Hemoglobin 28.1 pg (27.0-31.2); Mean Corpuscular Volume 86.1 fl (81-99); Mean Platelet Volume 8.6 fl (7.4-10.4); Monocytes # 0.4 K/mm3 (0.1-1.0); Monocytes % 4.9 % (1.7-9.3); Neutrophils # 6.6 K/mm3 (1.8-7.8); Neutrophils % 85.9 % (37.0-80.0); Platelet Count 275 K/mm3 (142-424); Red Blood Count 4.22 M/mm3 (4.20-5.40); Red Cell Distribution Width 17.5 % (11.5-17.5); White Blood Count 7.7 K/mm3 (4.5-13.0)
[2023-09-20 13:14] LABS: Chloride 106 mmol/L (98-107); Potassium 3.8 mmoL/L (3.5-5.1); Sodium 138 mmol/L (136-145)
[2023-09-20 13:17] LABS: Anion Gap 9.8 mEq/L (5-15); Blood Urea Nitrogen 13 mg/dl (7-17); Carbon Dioxide 26 mmol/L (22.0-30.0); Creatinine Clearance Estimated 164 mL/min (50-200); Estimated Glomerular Filt Rate 108 ml/min (>60); GFR (African American) 130 ML/MIN (>60)
[2023-09-20 13:18] LABS: Calcium 8.6 mg/dl (8.4-10.2); Glucose 104 mg/dl (74-100)
[2023-09-20 13:19] LABS: MANUAL DIFFERENTIAL MANUAL DIFFERENTIAL (MANUAL DIFF)
[2023-09-20 13:20] LABS: Coronavirus 19, PCR Not Detected (NotDetected); Influenza A, PCR Not Detected (NotDetected); Influenza B, PCR Not Detected (NotDetected)
[2023-09-20 14:00] LABS: Lymphocytes % 10 % (10-50); Monocytes % 4 % (2-9); Neutrophils % 86 % (42-76); Platelet Estimate Normal; RBC Morphology Normal; Total Cells Counted 100
[2023-09-20 14:04] VITALS: BP 139/91; PULSE 122; RESP 19; TEMP 37.7; O2SAT 96
== END 2023-09-20 14:04 | disposition home or self-care (01) ==
PROVIDERS: Emergency Provider Nurse Practitioner Family; PCP Nurse Practitioner Family
DX: R50.9 Fever, unspecified; R51.9 Headache, unspecified; R42 Dizziness and giddiness; R53.81 Other malaise; O91.23 Nonpurulent mastitis associated with lactation
CPT/HCPCS: 80048; 85007; 85025; 87636; 87804; 87880; 99212; 99214; G0463

== ENCOUNTER 2023-12-20 08:40 | Emergency (ER) | payer BC, SELFPAY ==
[2023-12-20 08:50] VITALS: BP 123/71; PULSE 76; RESP 20; TEMP 36.4; O2SAT 97; BMI 31.1
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
[2023-12-20 09:09] VITALS: BP 123/71; PULSE 76; RESP 20; TEMP 36.4; O2SAT 97
== END 2023-12-20 09:14 | disposition home or self-care (01) ==
PROVIDERS: Emergency Provider Nurse Practitioner; PCP Nurse Practitioner Family
DX: J20.9 Acute bronchitis, unspecified (principal); J01.90 Acute sinusitis, unspecified; R09.82 Postnasal drip; R09.81 Nasal congestion; R05.9 Cough, unspecified
CPT/HCPCS: 99212; 99214; G0463

== ENCOUNTER 2024-09-22 08:55 | Emergency (ER) | payer BC, SELFPAY ==
[2024-09-22 08:56] VITALS: BP 118/81; PULSE 94; RESP 20; TEMP 36.8; O2SAT 100; BMI 26.4
--- NOTE | 2024-09-22 09:16 | CT_ITS ---
FINAL REPORT TECHNIQUE: Axial images through the abdomen and pelvis were performed without contrast. This study was performed with techniques to keep radiation doses as low as reasonably achievable, (ALARA). Individualized dose reduction techniques using automated exposure control or adjustment of mA and/or kV according to the patient's size were employed. CLINICAL HISTORY: R flank pain FINDINGS: ABDOMEN: The lung bases are clear. The heart size is normal. Limited images of the liver are unremarkable. The spleen is normal. No adrenal mass is identified. The aorta is normal in caliber. There is no significant free fluid or adenopathy. There is no nephrolithiasis. There is no hydronephrosis. PELVIS: The appendix is normal. There is bladder wall thickening with adjacent stranding consistent with inflammatory change and worrisome for cystitis. No ureteral stone identified. There is no significant free fluid or adenopathy. IMPRESSION: Findings worrisome for cystitis. Reviewed, Interpreted and Dictated by Ady Henry III, MD Transcribed by Taina Das Authenticated and . [facility]
[2024-09-22] MEDS: KETOROLAC 30MG/ML VIAL 15 MG IV (09:21)
[2024-09-22] MEDS: ACETAMINOPHEN 500MG TAB 1000 MG PO (09:21)
[2024-09-22] MEDS: 0.9 % SODIUM CHLORIDE 1000ML 1,000 ML 999 ML IV (09:21)
[2024-09-22] MEDS: ONDANSETRON 4MG/2ML VIAL 4 MG IV (09:21)
[2024-09-22 09:22] LABS: Basophils % 0.3 % (0.1-2.0); Eosinophils # 0.1 K/mm3 (0.0-0.4); Eosinophils % 0.5 % (0.1-12.0); Hematocrit 37.2 % (37.0-47.0); Hemoglobin 12.8 g/dL (12.2-16.2); Lymphocytes # 1.7 K/mm3 (0.7-4.5); Lymphocytes % 15.3 % (10-50); Mean Corpuscular HGB Conc 34.4 g/dL (31.8-35.4); Mean Corpuscular Volume 78.5 fl (81-99); Mean Platelet Volume 8.4 fl (7.4-10.4); Monocytes # 0.6 K/mm3 (0.1-1.0); Monocytes % 5.5 % (1.7-9.3); Neutrophils # 8.6 K/mm3 (1.8-7.8); Neutrophils % 78.4 % (37.0-80.0); Platelet Count 272 K/mm3 (142-424); Red Blood Count 4.74 M/mm3 (4.20-5.40); Red Cell Distribution Width 15.1 % (11.5-17.5)
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
[2024-09-22 09:30] VITALS: BP 90/48; PULSE 87; O2SAT 99
[2024-09-22 09:30] LABS: Alanine Aminotransferase 22 U/L (12-78); Albumin Level 4.6 g/dl (3.5-5.0); Albumin/Globulin Ratio 1.6 (1.1-1.8); Alkaline Phosphatase 74 U/L (38-126); Anion Gap 10.7 mEq/L (5-15); Aspartate Amino Transferase 34 U/L (14-36); Bilirubin,Total 0.8 mg/dl (0.2-1.3); Blood Urea Nitrogen 13 mg/dl (7-17); Calcium 9.2 mg/dl (8.4-10.2); Carbon Dioxide 28 mmol/L (22.0-30.0); Chloride 106 mmol/L (98-107); Creatinine Clearance Estimated 141 mL/min (50-200); Estimated Glomerular Filt Rate 107 ml/min (>60); GFR (African American) 129 ML/MIN (>60); Globulin 2.9 g/dL (1.3-3.2); Glucose 95 mg/dl (74-100); Potassium 3.7 mmoL/L (3.5-5.1); Sodium 141 mmol/L (136-145); Total Protein,Serum 7.5 g/dl (6.3-8.2)
[2024-09-22 09:57] LABS: HCG Qualitative, Serum Negative (Negative)
[2024-09-22 10:00] VITALS: BP 100/47; PULSE 80; O2SAT 100
[2024-09-22 10:09] LABS: Microscopic, Urine URINE MICROSCOPIC (MICROSCOPIC)
--- NOTE | 2024-09-22 10:14 | US_ITS ---
PROCEDURE INFORMATION: Exam: US Duplex Artery and Vein of the Abdominal and/or Reproductive Organs. Complete Ovaries Exam date and time: 09/22/2024 10:32 AM Age: 18 years old Clinical indication: Pelvic pain; Additional info: R ovarian cyst, pelvic pain TECHNIQUE: Imaging protocol: Real-time duplex ultrasound scan of the arterial and venous flow with color Doppler flow and spectral waveform analysis with image documentation. Duplex exam was performed to evaluate for torsion and other vascular conditions. Total images: 232 COMPARISON: CT ABDOMEN PELVIS WO CON 09/22/2024 10:07 AM FINDINGS: Right ovary/adnexa: Blood flow is demonstrated to the right ovary. Left ovary/adnexa: Blood flow is demonstrated to the left ovary. IMPRESSION: No evidence of ovarian torsion. PROCEDURE INFORMATION: Exam: US Pelvis, Transvaginal, Non-Obstetric Exam date and time: 09/22/2024 10:32 AM Age: 18 years old Clinical indication: Pelvic pain; Additional info: R ovarian cyst, pelvic pain TECHNIQUE: Imaging protocol: Real-time transvaginal pelvic (non-obstetric) ultrasound with image documentation. Transvaginal imaging was used for better evaluation of the endometrium, adnexa, and/or cervix. COMPARISON: US TRANSVAGINAL 01/07/2023 1:13 PM FINDINGS: Uterus: Uterus measures 8.1 x 4.2 x 5.7 cm. Endometrium measures 1.5 cm. Right ovary/adnexa: Right ovary measures 3.6 x 2.5 x 3.0 cm. Right complex ovarian cyst is present measuring 1.5 x 1.7 x 1.8 cm. Blood flow is demonstrated to the right ovary. Left ovary/adnexa: Left ovary measures 2.3 x 3.0 x 2.1 cm. Blood flow is demonstrated to the left ovary. Urinary bladder: Urinary bladder is limited. Intraperitoneal space: Fluid is noted within the cul-de-sac. IMPRESSION: 1. Endometrium measures 1.5 cm. 2. Right complex ovarian cyst is present measuring 1.5 x 1.7 x 1.8 cm. 3. Fluid is noted within the cul-de-sac.
--- NOTE | 2024-09-22 10:15 | PC.NURSE ---
Radiology notified of TVUS order.
[2024-09-22 10:25] LABS: Appearance,Urine CLEAR (Clear); Bilirubin,Urine Negative (Negative); Blood, Urine 2+ (Negative); Color,Urine YELLOW (Yellow); Glucose,Urine (UA) Negative (Negative); Ketones,Urine Negative (Negative); Leukocyte Esterase,Urine 1+ (Negative); Nitrate,Urine Negative (Negative); Protein,Urine Negative (Negative); Specific Gravity, Urine <= 1.005 (1.005-1.030); Urobilinogen,Urine 0.2 EU/dl (0.2)
--- NOTE | 2024-09-22 10:38 | PC.NURSE ---
pt to u/s via wheelchair
[2024-09-22 10:46] LABS: Bacteria,Urine Trace /lpf
--- NOTE | 2024-09-22 11:56 | PC.NURSE ---
Called radiology to check the status of TVUS read, Desiree states she is going to s/w u/s
[2024-09-22 12:16] VITALS: BP 95/55; PULSE 80; RESP 16; TEMP 36.8; O2SAT 100
--- NOTE | 2024-09-23 15:28 | PC.NURSE ---
discussed urine prelim with , pt dc with macrobid, ntd
== END 2024-09-22 12:25 | disposition home or self-care (01) ==
PROVIDERS: Emergency Provider Emergency Medicine; PCP Nurse Practitioner Family
DX: N30.90 Cystitis, unspecified without hematuria (principal); N83.209 Unspecified ovarian cyst, unspecified side; R10.30 Lower abdominal pain, unspecified; R30.9 Painful micturition, unspecified; M54.9 Dorsalgia, unspecified; R19.7 Diarrhea, unspecified
CPT/HCPCS: 74176; 76830; 80053; 81001; 84703; 85025; 87086; 87088; 87186; 96361; 96374; 96375; 99284; J1885; J2405; J7030

== ENCOUNTER 2024-10-16 11:58 | Emergency (ER) | payer BC, SELFPAY ==
[2024-10-16 13:44] VITALS: BP 117/63; PULSE 95; RESP 20; TEMP 36.6; O2SAT 97; BMI 29.7
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
[2024-10-16 14:24] VITALS: BP 117/63; PULSE 95; RESP 20; TEMP 36.6
== END 2024-10-16 14:33 | disposition home or self-care (01) ==
PROVIDERS: Emergency Provider Nurse Practitioner Family; PCP Nurse Practitioner Family
DX: J32.9 Chronic sinusitis, unspecified (principal); R05.9 Cough, unspecified; R09.81 Nasal congestion; R63.8 Other symptoms and signs concerning food and fluid intake
CPT/HCPCS: 99212; G0381

== ENCOUNTER 2025-02-04 07:59 | Outpatient (CLI) | payer BC, SELFPAY ==
[2025-02-04 09:28] LABS: Thyroid Stimulating Hormone 2.04 uIU/mL (0.465-4.68)
[2025-02-05 07:28] LABS: FSH 2.7 mIU/mL (.); LH 10.1 mIU/mL (.); Progesterone 6.9 ng/mL (.); Testosterone,Total 43 ng/dL (13-71)
[2025-02-06 12:11] LABS: Insulin Level Total 18.5 uIU/mL (2.6-24.9)
== END 2025-02-04 23:59 | disposition home or self-care (01) ==
LOC: LAB 08:01
PROVIDERS: PCP Nurse Practitioner Family; Visit Provider Obstetrics & Gynecology
DX: E34.9 Endocrine disorder, unspecified (principal); R53.83 Other fatigue; N83.209 Unspecified ovarian cyst, unspecified side
CPT/HCPCS: 36415; 82670; 83001; 83002; 83525; 84144; 84403; 84443

== ENCOUNTER 2025-02-09 07:59 | Outpatient (CLI) | payer OTHER, BC, SELFPAY ==
--- NOTE | 2025-02-09 08:00 | US_ITS ---
PROCEDURE: US TRANSVAGINAL CLINICAL INDICATION: pelvic pain COMPARISON: US US TRANSVAGINAL from 01/07/[address] ABDOMEN PELVIS WO CON from 09/22/2024 US US TRANSVAGINAL from 09/22/2024 FINDINGS: Transvaginal sonographic images of the pelvis were obtained. UTERUS: 7.6 cm x 6.0cmx 4.5cm anteverted with a combined endometrial thickness of 19mm. LEFT OVARY: 2.4cmx2.1cmx1.6cm with a volume of 4.3ml. There are multiple small peripheral follicles consistent with a polycystic ovary. RIGHT OVARY: 2.6 cmx 1.6 cmx1.9 cm with a volume of 4.2ml. There are multiple small peripheral follicles consistent with a polycystic ovary. The previously described small complex cyst has completely resolved. Both ovaries are seen and appear normal. Doppler flow to both ovaries are seen. There is trace fluid in the cul-de-sac. IMPRESSION: 1. Anteverted uterus normal in shape and size. The endometrium is thickened at 19 mm and likely premenstrual. 2. Both ovaries are seen and appear polycystic. The previously described small complex cyst in the right ovary has completely resolved. 3. There is trace fluid in the cul-de-sac likely physiologic. Dictated by: Rich Guerra MD 02/10/2025 07:36 Rich Guerra MD in [place] 02/10/2025 07:36
== END 2025-02-09 23:59 | disposition home or self-care (01) ==
LOC: RAD 08:00
PROVIDERS: PCP Nurse Practitioner Family; Visit Provider Obstetrics & Gynecology
DX: R10.2 Pelvic and perineal pain (principal)
CPT/HCPCS: 76830

== ENCOUNTER 2025-03-10 18:57 | Emergency (ER) | payer OTHER, BC, SELFPAY ==
[2025-03-10 19:12] VITALS: BP 131/75; PULSE 88; RESP 18; TEMP 36.8; O2SAT 98; BMI 30.8
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
[2025-03-10 19:34] VITALS: BP 104/78; PULSE 87; O2SAT 99
[2025-03-10 20:08] VITALS: BP 120/72; PULSE 82; RESP 16; TEMP 36.8; O2SAT 98
== END 2025-03-10 20:10 | disposition home or self-care (01) ==
PROVIDERS: Emergency Provider Emergency Medicine; PCP Nurse Practitioner Family
DX: H11.423 Conjunctival edema, bilateral (principal); H10.13 Acute atopic conjunctivitis, bilateral
CPT/HCPCS: 99283

== ENCOUNTER 2025-04-13 16:01 | Outpatient (CLI) | payer OTHER, BC, SELFPAY ==
[2025-04-13 18:26] LABS: HCG,Quantitative < 2 mIU/ml (0-5.42)
[2025-04-13 19:01] LABS: Hemoglobin A1C 5.7 % (4.0-6.0)
== END 2025-04-13 23:59 | disposition home or self-care (01) ==
LOC: LAB 16:01
PROVIDERS: PCP Nurse Practitioner Family; Visit Provider Obstetrics & Gynecology
DX: O98.919 Unspecified maternal infectious and parasitic disease complicating pregnancy, unspecified trimester (principal); B99.9 Unspecified infectious disease; Z3A.00 Weeks of gestation of pregnancy not specified
CPT/HCPCS: 36415; 83036; 84702

== ENCOUNTER 2025-05-30 09:06 | Outpatient (CLI) | payer OTHER, BC, SELFPAY | END 2025-05-30 23:59 | disposition home or self-care (01) | LOC: LAB 09:06 | PROVIDERS: PCP Nurse Practitioner Family; Visit Provider Obstetrics & Gynecology | DX: Z32.00 Encounter for pregnancy test, result unknown (principal); N92.6 Irregular menstruation, unspecified | CPT/HCPCS: 36415; 84144; 84702 ==

== ENCOUNTER 2025-05-31 14:33 | Outpatient (CLI) | payer OTHER, BC, SELFPAY | END 2025-05-31 23:59 | disposition home or self-care (01) | LOC: LAB 14:34 | PROVIDERS: PCP Nurse Practitioner Family; Visit Provider Obstetrics & Gynecology | DX: O20.9 Hemorrhage in early pregnancy, unspecified (principal); Z3A.00 Weeks of gestation of pregnancy not specified | CPT/HCPCS: 36415; 84702 ==

== ENCOUNTER 2025-06-03 08:46 | Outpatient (CLI) | payer OTHER, BC, SELFPAY | END 2025-06-03 23:59 | disposition home or self-care (01) | LOC: LAB 08:47 | PROVIDERS: PCP Nurse Practitioner Family; Visit Provider Obstetrics & Gynecology | DX: O03.9 Complete or unspecified spontaneous abortion without complication (principal); Z3A.00 Weeks of gestation of pregnancy not specified | CPT/HCPCS: 36415; 84702 ==

== ENCOUNTER 2025-06-05 14:10 | Outpatient (CLI) | payer OTHER, BC, SELFPAY | END 2025-06-05 23:59 | disposition home or self-care (01) | LOC: LAB 14:11 | PROVIDERS: PCP Nurse Practitioner Family; Visit Provider Obstetrics & Gynecology | DX: O03.9 Complete or unspecified spontaneous abortion without complication (principal) | CPT/HCPCS: 36415; 84702 ==

== ENCOUNTER 2025-06-07 08:24 | Outpatient (CLI) | payer OTHER, BC, SELFPAY | END 2025-06-07 23:59 | disposition home or self-care (01) | LOC: LAB 08:24 | PROVIDERS: PCP Nurse Practitioner Family; Visit Provider Obstetrics & Gynecology | DX: O03.9 Complete or unspecified spontaneous abortion without complication (principal) | CPT/HCPCS: 36415; 84144; 84702 ==

== ENCOUNTER 2025-06-09 09:43 | Outpatient (CLI) | payer OTHER, BC, SELFPAY | END 2025-06-09 23:59 | disposition home or self-care (01) | LOC: LAB 09:43 | PROVIDERS: PCP Nurse Practitioner Family; Visit Provider Obstetrics & Gynecology | DX: Z34.90 Encounter for supervision of normal pregnancy, unspecified, unspecified trimester (principal) | CPT/HCPCS: 36415; 84144; 84702 ==

== ENCOUNTER 2025-06-11 19:28 | Day surgery (SDC) | payer OTHER, BC, SELFPAY ==
[2025-06-11] VITALS (10 sets, daily range): BP systolic 112–145; BP diastolic 63–94; PULSE 85–99; RESP 14–18; TEMP 36.6–36.9; O2SAT 93–100; BMI 30.6
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
[2025-06-11 21:13] LABS: Hematocrit 34.6 % (37.0-47.0); Hemoglobin 11.2 g/dL (12.2-16.2); Immature Granulocytes % 0.2 %; Mean Corpuscular HGB Conc 32.4 g/dL (31.8-35.4); Mean Corpuscular Hemoglobin 25.6 pg (27.0-31.2); Mean Corpuscular Volume 79.2 fl (81-99); Nucleated Red Blood Cells % 0 %; Platelet Count 272 K/mm3 (142-424); Red Blood Count 4.37 M/mm3 (4.20-5.40); Red Cell Distribution Width-SD 42.8 fL; White Blood Count 11.7 K/mm3 (4.8-10.8)
[2025-06-11 21:15] LABS: Alanine Aminotransferase 25 U/L (12-78); Albumin Level 4.6 g/dl (3.5-5.0); Albumin/Globulin Ratio 1.5 (1.1-1.8); Alkaline Phosphatase 51 U/L (38-126); Anion Gap 13.9 mEq/L (5-15); Aspartate Amino Transferase 34 U/L (14-36); Bilirubin,Total 0.5 mg/dl (0.2-1.3); Blood Urea Nitrogen 14 mg/dl (7-17); Calcium 9.4 mg/dl (8.4-10.2); Carbon Dioxide 24 mmol/L (22.0-30.0); Chloride 107 mmol/L (98-107); Creatinine Clearance Estimated 184 mL/min (50-200); Creatinine,Serum 0.60 mg/dl (0.52-1.04); Estimated Glomerular Filt Rate 126 ml/min (>60); GFR (African American) 153 ML/MIN (>60); Globulin 3.0 g/dL (1.3-3.2); Glucose 78 mg/dl (74-100); Potassium 3.9 mmoL/L (3.5-5.1); Sodium 141 mmol/L (136-145); Total Protein,Serum 7.6 g/dl (6.3-8.2)
[2025-06-11] MEDS: LACTATED RINGERS 1000ML 1,000 ML 999 ML IV (21:22)
[2025-06-11] MEDS: FENTANYL 100MCG/2ML VIAL 25 MCG IV (21:22)
[2025-06-11] MEDS: ONDANSETRON 4MG/2ML VIAL 4 MG IV ×2 (21:22→23:40)
--- NOTE | 2025-06-11 21:25 | PC.NURSE ---
OB surgeon at the bedside discussing OR procedure.
[2025-06-11 21:35] LABS: Activated Partial Thrombo Time 22.5 seconds (22.8-30.6); INR 0.95 (0.9-1.1); Prothrombin Time 10.6 seconds (10.1-12.5)
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
--- NOTE | 2025-06-11 21:36 | PC.NURSE ---
Pre-Op staff at the bedside.
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
[2025-06-11] MEDS: BUPIVACAINE 0.5% W/EPI 1:200,000 30ML VIAL 30 ML IJ (22:20)
--- NOTE | 2025-06-11 23:21 | EXP.ANES.I ---
[facility] Anesthesia Record Part I Anesthesia Record I Intake, IV Amount: 1,100 Hydration: Adequate Estimated blood loss (mL): 2 Urine output (mL): 0 Blood Products used (#): none Blood Pressure: 127/70 SaO2: 93 Pulse Rate: 88 Airway Patency: Patent Respiratory Rate: 16 Temperature: 98.1 F Patient is:: Drowsy and Stable Stable to PACU at:: 23:15
--- NOTE | 2025-06-11 23:25 | EXP.OP.NOTE ---
Date of procedure: 06/11/25 Pre-op Diagnosis:: 1. Acute abdominal pain 2. Free fluid in pelvis 3. of unknown location Post-op Diagnosis:: 1. Acute abdominal pain 2. Free fluid in pelvis 3. of unknown location 4. Ectopic of right fallopian tube 5. Stage 2 endometriosis of pelvic peritoneum Procedure performed:: 1. Laparoscopy, evacuation and irrigation of hemoperitoneum 2. Right salpingectomy Surgeon:: Kelley Roberts DO [employer] Education(s):: N/a MINES INSPECTOR:: Robbie Dave Anesthesia: GETA Estimated blood loss (mL): 2 Clinical Note:: Mrs Priscila Andrews is a 19 yo at unknown gestational age who presents to ED with acute abdominal pain that started around 1815 this evening. Initial beta hcg quant 05/30/25 was 300 and progesterone level was 1.1. Beta hcg quant trend has been as follows: 286 (05/31), 390 (06/03), 523 (06/05), 716 (06/07/25), 876 (06/09) and 898 today (06/11). She admits to mild cramping and spotting in the beginning of . No vaginal bleeding today. Denies fever/chills, chest pain and shortness of breath. She admits to associated nausea secondary to the pain. Denies vomiting. History of x 1 and endometriosis. In the ED Dr. Billy, ED physician, performed bedside ultrasound which demonstrated no obvious IUP but significant free fluid in the pelvis right lower quadrant and right upper quadrant. This is highly concerning for a ruptured ectopic . Patient is mildly tachycardic but not hypotensive IV fluids have been initiated 2 IVs have been placed type and screen has been sent and patient is been crossed for 2 units. Hemodynamically from a blood pressure standpoint she remained stable. Operative findings:: 1. On bimanual exam, uterus midposition, normal size and shape. No adnexal masses palpated 2. On laparoscopic exam, red blood and clot surrounding uterus, bilateral fallopian tubes, ovaries and posterior cul-de-sac. Right fallopian tube with suspected ectopic and large clot adhered to fimbriated end of right fallopian tube 3. Grossly normal appearing left fallopian tube and bilateral ovaries 4. Multiple clear blister like endomeriotic lesions on bilateral uterosacral ligaments and in posterior cul-de-sac. Peritoneal thickneening and beginning of peritoneal defect noted above left uterosacral ligament. A few small powder burn lesions on right pelvic side wall Operative note:: Risks, benefits and alternatives were discussed with the patient. Risks include but are not limited to bleeding, infection, damage to adjacent structures and VTE. Patient voiced understanding and agreed to proceed with surgery. She was wheeled back to the operating room and placed under general anesthesia without difficulty. She was placed in the dorsal lithotomy position and prepped and draped in normal sterile fashion. A straight catheter was used to drain the bladder. A bimanual exam was performed. A weighted Auvard was placed in the vaginal vault. A single tooth tenaculum was placed on the anterior lip of the cervix. Elderon manipulator was inserted into the cervical canal and attached to the tenaculum. Weighted Auvard was removed from the vagina. Attention was then drawn to the abdomen. A 1.5 cm infraumbilical incision was made. Veress needle was tested and inserted intraabdominally without difficulty. Opening pressure of 5 mm Hg. Abdomen was then insulflated to 15 mm Hg. Trocar was inserted through infraumbilical incision and laparoscope was inserted. Abdomen was viewed in its entirety. See findings above. Pictures were taken. Left lower quadrant was transilluminated. 1.5 cm incision was made and 11 mm disposable blunt trocar was inserted into the abdomen under direct laparoscopic visualization. Trocar was removed and sleeve was left in place. Right lower quadrant was transilluminated. A 1.5 cm incision was made and 11 mm disposable trocar was inserted into the abdomen under direct laparoscopic visualization. Obturator was removed and sleeve was left in place. Hemoperitoneum was evacuated. Fimbriated end of right fallopian tube was grasped and [place] clamp. Ligasure was used to transect the right mesosalpinx and fallopian tube at uterine cornua, leaving right ovary in situ. Right fallopian tube with ectopic was removed from the abdomen and will be sent to pathology for review. Hemostasis was noted. Pelvis was irrigated with clear return of fluids. Left lower quadrant trocar was removed under direct laparoscopic visualization. Right lower quadrant trocar was removed under direct laparoscopic visualization. Pneumoperitoneum was released into the atmosphere. Infraumbilical trocar was removed under direct laparoscopic visualization to ensure no herniation of bowel or omentum. Skin incisions were closed with 3-0 Vicryl. Dermabond was applied over closed skin incisions. All instruments were removed from the vagina. Tenaculum site was noted to be hemostatic. Patient was cleaned and placed into the dorsal supine position. She awoke from anesthesia without difficulty. She was transported to the recovery room in stable condition. She was given instructions for discharge and to follow-up in the office in 1-2 weeks. Condition: stable Disposition: same day Specimens:: 1. Right fallopian tube Complications:: None
[2025-06-12 00:15] VITALS: BP 117/77; PULSE 87; RESP 16; TEMP 36.7; O2SAT 100
[2025-06-12] MEDS: SODIUM CHLORIDE 0.9% 25ML BAG 25 ML IV (00:15)
[2025-06-12] MEDS: HYDROCODONE/APAP 5/325 MG TABLET 1 TAB (00:15)
[2025-06-12] MEDS: PROMETHAZINE HCL 25MG/ML 1ML VIAL 6.25 MG IV (00:15)
--- NOTE | 2025-06-12 07:30 | EXP.ANES.II ---
[facility] Anesthesia Record Part II Anesthesia Record Part II Discharge Time: 23:45 Destination: Surgical Day Care (OP Surgery) PACU nurse assessment reviewed?: Yes Patient Condition:: Good Anesthesia Complications:: None Swallowing reflex intact?: Yes Airway Patency: Patent Cyanosis?: No Blood Pressure: 120/76 SaO2: 100 Respiratory Rate: 16 Pulse Rate: 99 Temperature: 98.1 F Mental Status: Alert & Oriented Pain level:: 4 Nausea and/or vomitting:: None Intake, IV Amount: 0 Hydration: Adequate
[2025-06-12 07:31] VITALS: BP 120/76; PULSE 99; RESP 16; TEMP 36.7; O2SAT 100
== END 2025-06-12 00:25 | disposition home or self-care (01) ==
LOC: ER 21:20 → SDC 21:50
PROVIDERS: Emergency Provider Student in an Organized Health Care Education/Training Program; PCP Nurse Practitioner Family; Visit Provider Obstetrics & Gynecology
PROC: (CPT 49320; principal; 2025-06-11 22:00)
DX: O00.101 Right tubal pregnancy without intrauterine pregnancy (principal); N80.30 Endometriosis of pelvic peritoneum, unspecified
CPT/HCPCS: 59151; 80053; 84702; 85025; 85610; 85730; 86850; 99285; J0690; J1100; J1885; J2003; J2250; J2405; J2550; J2704; J3010; J7120

== ENCOUNTER 2025-08-22 09:29 | Outpatient (CLI) | payer OTHER, BC, SELFPAY ==
--- NOTE | 2025-08-22 09:32 | US_ITS ---
PROCEDURE INFORMATION: Exam: US Left Breast, Complete Exam date and time: 08/22/2025 9:34 AM Age: 19 years old Clinical indication: Dr felt lump in left breast . Patient unable to feel lump today but pointed to the area of concern at 12 o'clock TECHNIQUE: Imaging protocol: Complete ultrasound of all four quadrants of the left breast and the retroareolar regions, including ultrasound of the axilla when performed. COMPARISON: No relevant prior studies available. FINDINGS: ULTRASOUND: Breast ultrasound findings: Sonographic images of the left breast including the retroareolar region, all 4 quadrants and the axilla do not demonstrate any solid or cystic masses. This is with particular attention to the 12 o'clock axis. No architectural distortion or acoustical shadowing. No skin thickening or axillary adenopathy. IMPRESSION: No sonographic evidence of malignancy. Further evaluation of a palpable abnormality should be based on clinical grounds regardless of radiographic findings or lack thereof. ASSESSMENT: BI-RADS Category 1: Negative.
--- OUTSIDE RECORDS SUMMARY | 2025-08-22 09:32 | XMS_ITS | Data Portability ---
Author Organization [facility] Address [address] [place] [address] Care Team Providers Care V Belt Builder Name Role Phone NEVA MIRELES Primary Care Provider MORALES GARCIA Referring Provider Assessment Encounter Date Assessment Date Assessment LastModified by Organization Details LastModified Time 01/15/2023 01/15/2023 Reproductive life plan discussed. Patient does plan to have children in the future. [email or web address] Not available 01/15/2023 22:54:10 Plan of Treatment Reminders Order Date Submit Date Provider Last Modified By Organization Details Last Modified Time Details Appointments Establish ed Patient 20 2024 03:20P Nicole Mireles APRN Not available Not available Not available Lab rapid strep group A, throat 2024 025 [facility], [address] [place] [address], [address], 08/17/2025 16:07:59 HCG, intact + beta subunit, quant, serum or plasma 2024 025 [facility], [address], [place] [address], [place], [address], 08/18/2025 12:08:03 test, urine 2024 025 [facility], [address] [place] [address], [address], 08/17/2025 16:08:48 rapid strep group A, throat 2022 023 [facility], [address] [place] [address], [address], 01/29/2023 10:24:53 urinalysi s, dipstick 2022 023 [facility], [address] [place] [address], [address], 01/01/2023 11:19:58 test, urine 2022 023 [facility], [address] [place] [address], [address], 01/01/2023 09:10:21 culture, urine 2022 023 [facility], [address], [place] [address], [place], [address], 01/03/2023 12:07:51 TSH + free T4, serum 2021 022 [facility], [address], [place] [address], [place], [address], 10/07/2022 00:05:58 thyropero xidase Ab, serum 2021 022 [facility], [address], [place], [place], [address], 10/07/2022 00:06:01 CMP, serum or plasma 2021 022 [facility], [address], [place] [address], [place], [address], 10/07/2022 00:05:59 CBC w/ auto diff 2021 022 [facility], [address], [place], [place], [address], 10/07/2022 00:05:59 vitamin D, 25-hydrox y, total, serum 2021 022 [facility], [address], [place] [address], [place], [address], 10/07/2022 00:06:00 vitamin B12 + folate, serum or blood 2021 022 [facility], [address], [place] [address], [place], [address], 10/07/2022 00:06:00 Referral None recorded. Procedures None recorded. Surgeries None recorded. Imaging US, breast, unilatera l 2024 025 [facility] (Scheduling), [address], [place], [address], 08/18/2025 15:43:57 US, transvagi nal 2022 023 [facility] (Scheduling), [address], [place], [address], 01/07/2023 15:38:28 US, thyroid 2021 022 [facility] (X-Ray), [address], [place], [address], 10/03/2022 13:02:32 Medication Orders Zithromax Z-Kumar 250 mg tablet 2022 023 [facility], [address] [address], [place], [place], [id number], 08/17/2025 15:24:50 ofloxacin 0.3 % eye drops 2022 023 [facility], [address] [facility] [address], [place], [place], [id number], 08/17/2025 15:25:05 Miralax 17 gram/dose oral powder 2022 023 [facility], [address], [id number], 01/15/2023 16:11:10 Colace 100 mg capsule 2022 023 [email or web address] [facility], [facility] [address], [id number], 01/15/2023 16:15:01 cephalexi n 500 mg capsule [email or web address] [place] [address] Pharmacy, [address], [id number], 01/15/2023 15:20:52 Patient TargetsNo targets recorded. Patient Instructions Encounter Date Encounter Id Patient Instructions Last Modified By Organization Details Last Modified Time 01/15/2023 [id number] See HPI Encourag e medication as directed Increase fiber in diet-encourage fruits/veggies Encourage increased fluids 80-100oz water/daily Rto 6 wks for AWE/pelvic exam [email or web address] Not available 01/15/2023 22:59:39 01/29/2023 [id number] pinkeye: care instructions [email or web address] Not available 01/29/2023 10:24:53 08/17/2025 [id number] sore throat in children: care instructions [email or web address] Not available 08/17/2025 15:59:03 Reason for Referral None Reported. Results Created Date Observation Date Name Description Value Unit Range Abnormal Flag Note LastModifiedBy Organization Detail LastModifiedTime 10/03/20 22 10/04/2022 TSH+F REE T4 TSH 3.930 uIU/m L 0.450- 4.500 Not Available [facility] ([facility]) [address] [facility] [address], [place], [address], 10/07/2022 00:05:58 10/03/20 22 10/04/2022 TSH+F REE T4 T4,free(dire ct) 1.11 NG/dL 0.93-1 .60 Not Available [facility] ([facility]) [address] [place], [address], 10/07/2022 00:05:58 10/03/20 22 10/04/2022 CBC WITH DIFFE RENTI AL/PL ATELE T WBC 6.2 x10e3 /uL 3.4-10 .8 Not Available [facility] ([facility]) [address] [place], [address], 10/07/2022 00:05:59 10/03/20 22 10/04/2022 CBC WITH DIFFE RENTI AL/PL ATELE T RBC 4.65 x10e6 /uL 3.77-5 .28 Not Available [facility] ([facility]) [address] [place], [address], 10/07/2022 00:05:59 10/03/20 22 10/04/2022 CBC WITH DIFFE RENTI AL/PL ATELE T hemoglobin 13.4 g/dL 11.1-1 5.9 Not Available [facility] ([facility]) [address] [place], [address], 10/07/2022 00:05:59 10/03/20 22 10/04/2022 CBC WITH DIFFE RENTI AL/PL ATELE T hematocrit 40.2 % 34.0-4 6.6 Not Available [facility] ([facility]) [address] [place], [address], 10/07/2022 00:05:59 10/03/20 22 10/04/2022 CBC WITH DIFFE RENTI AL/PL ATELE T MCV 87 fL 79-97 Not Available [facility] ([facility]) [address] [place], [address], 10/07/2022 00:05:59 10/03/20 22 10/04/2022 CBC WITH DIFFE RENTI AL/PL ATELE T MCH 28.8 pg 26.6-3 3.0 Not Available [facility] ([facility]) [address] [facility] [address], [place], [address], 10/07/2022 00:05:59 10/03/20 22 10/04/2022 CBC WITH DIFFE RENTI AL/PL ATELE T MCHC 33.3 g/dL 31.5-3 5.7 Not Available [facility] ([facility]) [address] [facility] [address], [place], [address], 10/07/2022 00:05:59 10/03/20 22 10/04/2022 CBC WITH DIFFE RENTI AL/PL ATELE T RDW 13.4 % 11.7-1 5.4 Not Available [facility] ([facility]) [address] [facility] [address], [place], [address], 10/07/2022 00:05:59 10/03/20 22 10/04/2022 CBC WITH DIFFE RENTI AL/PL ATELE T platelets 270 x10e3 /uL 150-45 0 Not Available [facility] ([facility]) [address] [place], [address], 10/07/2022 00:05:59 10/03/20 22 10/04/2022 CBC WITH DIFFE RENTI AL/PL ATELE T neutrophils 59 % not estab. Not Available [facility] ([facility]) [address] [place], [address], 10/07/2022 00:05:59 10/03/20 22 10/04/2022 CBC WITH DIFFE RENTI AL/PL ATELE T lymphs 32 % not estab. Not Available [facility] ([facility]) [address] [place], [address], 10/07/2022 00:05:59 10/03/20 22 10/04/2022 CBC WITH DIFFE RENTI AL/PL ATELE T monocytes 8 % not estab. Not Available [facility] ([facility]) [address] [place], [address], 10/07/2022 00:05:59 10/03/20 22 10/04/2022 CBC WITH DIFFE RENTI AL/PL ATELE T eos 1 % not estab. Not Available [facility] ([facility]) [address] [place], [address], 10/07/2022 00:05:59 10/03/20 22 10/04/2022 CBC WITH DIFFE RENTI AL/PL ATELE T basos 0 % not estab. Not Available [facility] ([facility]) [address] [place], [address], 10/07/2022 00:05:59 10/03/20 22 10/04/2022 CBC WITH DIFFE RENTI AL/PL ATELE T immature cells ODD TICKET CLERK Not Available [facility] ([facility]) [address] [place], [address], 10/07/2022 00:05:59 10/03/20 22 10/04/2022 CBC WITH DIFFE RENTI AL/PL ATELE T neutrophils (absolute) 3.6 x10e3 /uL 1.4-7. 0 Not Available [facility] ([facility]) [address] [place], [address], 10/07/2022 00:05:59 10/03/20 22 10/04/2022 CBC WITH DIFFE RENTI AL/PL ATELE T lymphs (absolute) 2.0 x10e3 /uL 0.7-3. 1 Not Available [facility] ([facility]) [address] [place], [address], 10/07/2022 00:05:59 10/03/20 22 10/04/2022 CBC WITH DIFFE RENTI AL/PL ATELE T monocytes(ab solute) 0.5 x10e3 /uL 0.1-0. 9 Not Available [facility] ([facility]) [address] [place], [address], 10/07/2022 00:05:59 10/03/20 22 10/04/2022 CBC WITH DIFFE RENTI AL/PL ATELE T eos (absolute) 0.1 x10e3 /uL 0.0-0. 4 Not Available [facility] ([facility]) [address] [facility] [address], [place], [address], 10/07/2022 00:05:59 10/03/20 22 10/04/2022 CBC WITH DIFFE RENTI AL/PL ATELE T baso (absolute) 0.0 x10e3 /uL 0.0-0. 2 Not Available [facility] ([facility]) [address] [facility] [address], [place], [address], 10/07/2022 00:05:59 10/03/20 22 10/04/2022 CBC WITH DIFFE RENTI AL/PL ATELE T immature granulocytes 0 % not estab. Not Available [facility] ([facility]) [address] [facility] [address], [place], [address], 10/07/2022 00:05:59 10/03/20 22 10/04/2022 CBC WITH DIFFE RENTI AL/PL ATELE T immature grans (abs) 0.0 x10e3 /uL 0.0-0. 1 Not Available [facility] ([facility]) [address] [place], [address], 10/07/2022 00:05:59 10/03/20 22 10/04/2022 CBC WITH DIFFE RENTI AL/PL ATELE T NRBC ODD TICKET CLERK Not Available [facility] ([facility]) [address] [place], [address], 10/07/2022 00:05:59 10/03/20 22 10/04/2022 CBC WITH DIFFE RENTI AL/PL ATELE T hematology comments: ODD TICKET CLERK Not Available [facility] ([facility]) [address] [place], [address], 10/07/2022 00:05:59 10/03/20 22 10/04/2022 COMP. METAB OLIC PANEL (14) glucose 79 mg/dL 70-99 Not Available [facility] ([facility]) [address] [place], [address], 10/07/2022 00:05:59 10/03/20 22 10/04/2022 COMP. METAB OLIC PANEL (14) BUN 9 mg/dL 6-20 Not Available [facility] ([facility]) [address] [place], [address], 10/07/2022 00:05:59 10/03/20 22 10/04/2022 COMP. METAB OLIC PANEL (14) creatinine 0.61 mg/dL 0.57-1 .00 Not Available [facility] ([facility]) [address] [place], [address], 10/07/2022 00:05:59 10/03/20 22 10/04/2022 COMP. METAB OLIC PANEL (14) eGFR 133 mL/mi n/1.7 3 >59 Not Available [facility] ([facility]) [address] [place], [address], 10/07/2022 00:05:59 10/03/20 22 10/04/2022 COMP. METAB OLIC PANEL (14) BUN/creatini ne ratio 15 9-23 Not Available [facility] ([facility]) [address] [place], [address], 10/07/2022 00:05:59 10/03/20 22 10/04/2022 COMP. METAB OLIC PANEL (14) sodium 139 mmol/ L 134-14 4 Not Available [facility] ([facility]) [address] [place], [address], 10/07/2022 00:05:59 10/03/20 22 10/04/2022 COMP. METAB OLIC PANEL (14) potassium 4.2 mmol/ L 3.5-5. 2 Not Available [facility] ([facility]) [address] [facility] [place], [address], 10/07/2022 00:05:59 10/03/20 22 10/04/2022 COMP. METAB OLIC PANEL (14) chloride 102 mmol/ L 96-106 Not Available [facility] ([facility]) [address] [facility] [place], [address], 10/07/2022 00:05:59 10/03/20 22 10/04/2022 COMP. METAB OLIC PANEL (14) carbon dioxide, total 23 mmol/ L 20-29 Not Available [facility] ([facility]) [address] [facility] [place], [address], 10/07/2022 00:05:59 10/03/20 22 10/04/2022 COMP. METAB OLIC PANEL (14) calcium 9.6 mg/dL 8.7-10 .2 Not Available [facility] ([facility]) [address] [facility] [place], [address], 10/07/2022 00:05:59 10/03/20 22 10/04/2022 COMP. METAB OLIC PANEL (14) protein, total 7.4 g/dL 6.0-8. 5 Not Available [facility] ([facility]) [address] [facility] [place], [address], 10/07/2022 00:05:59 10/03/20 22 10/04/2022 COMP. METAB OLIC PANEL (14) albumin 4.9 g/dL 3.9-5. 0 Not Available [facility] ([facility]) [address] [facility] [place], [address], 10/07/2022 00:05:59 10/03/20 22 10/04/2022 COMP. METAB OLIC PANEL (14) globulin, total 2.5 g/dL 1.5-4. 5 Not Available [facility] ([facility]) [address] [facility] [place], [address], 10/07/2022 00:05:59 10/03/20 22 10/04/2022 COMP. METAB OLIC PANEL (14) A/G ratio 2.0 1.2-2. 2 Not Available [facility] ([facility]) [address] [facility] [place], [address], 10/07/2022 00:05:59 10/03/20 22 10/04/2022 COMP. METAB OLIC PANEL (14) bilirubin, total 0.6 mg/dL 0.0-1. 2 Not Available [facility] ([facility]) [address] [facility] [place], [address], 10/07/2022 00:05:59 10/03/20 22 10/04/2022 COMP. METAB OLIC PANEL (14) alkaline phosphatase 71 IU/L 42-106 Not Available [facility] ([facility]) [address] [facility] [place], [address], 10/07/2022 00:05:59 10/03/20 22 10/04/2022 COMP. METAB OLIC PANEL (14) AST (SGOT) 18 IU/L 0-40 Not Available [facility] ([facility]) [address] [facility] [place], [address], 10/07/2022 00:05:59 10/03/20 22 10/04/2022 COMP. METAB OLIC PANEL (14) ALT (SGPT) 13 IU/L 0-32 Not Available [facility] ([facility]) [address] [facility] [place], [address], 10/07/2022 00:05:59 10/03/20 22 10/04/2022 VITAM IN B12 AND FOLAT E vitamin B12 567 pg/mL 232-12 45 Not Available [facility] ([facility]) [address] [facility] [address], [place], [address], 10/07/2022 00:06:00 10/03/20 22 10/04/2022 VITAM IN B12 AND FOLAT E folate (folic acid), serum 11.9 NG/mL >3.0 A serum folat e gualberto ntrat ion of less than 3.1 ng/mL is consi dered to repre sent clini mohan defic iency . Not Available [facility] ([facility]) [address] [facility] [address], [place], [address], 10/07/2022 00:06:00 10/03/20 22 10/04/2022 VITAM IN D, 25-HY DROXY vitamin D, 25-hydroxy 18.3 NG/mL 30.0-1 00.0 below low normal Vitam in D defic iency has been defin ed by the Insti tute of Medic ine and an Endoc rine Socie ty pract ice guide line as a level of serum 25-OH vitam in D less than 20 ng/mL (1,2) . The Endoc rine Socie ty went on to furth er defin e vitam in D insuf ficie ncy as a level betwe en 21 and 29 ng/mL (2). 1. IOM (Inst itute of Medic ine). 2009. Dieta ry refer ence intak es for calci um and D. Kendall garcia [place]: [facility] . 2. Brianne melara [place], Minerva vance [place], Casey off-F errar i GRIMM, et al. Evalu ation , treat ment, and preve ntion of vitam in D defic iency : an Endoc rine Socie ty clini mohan pract ice guide line. JCEM. 2010; 96(7) :1911 -30. Not Available [facility] ([facility]) [address] [facility] [address], [place], [address], 10/07/2022 00:06:00 10/03/20 22 10/04/2022 THYRO ID ANTIB ODIES thyroid peroxidase (tpo) Ab <9 IU/mL 0-26 Not Available [facility] ([facility]) [address] [facility] [address], [place], [address], 10/07/2022 00:06:01 10/03/20 22 10/06/2022 THYRO ID ANTIB ODIES thyroglobuli n antibody <1.0 IU/mL 0.0-0. 9 Thyro globu mark Antib ferny measu red by Beckm an Coult er Metho dolog y Not Available [facility] ([facility]) [address] [facility] [address], [place], [address], 10/07/2022 00:06:01 01/02/20 23 01/03/2023 URINE CULTU RE, ROUTI NE urine culture, routine Final report abnormal Not Available [facility] ([facility]) [address] [facility] [address], [place], [address], 01/03/2023 12:07:51 01/02/20 23 01/03/2023 URINE CULTU RE, ROUTI NE result 1 COMMEN T abnormal Beta hemol ytic Strep tococ cus, group B Great er than 100,0 00 colon y formi ng units per mL Penic illin and ampic illin are drugs of choic e for treat ment of beta- hemol ytic strep tococ mohan infec tions . Susce ptibi lity testi ng of penic illin s and other beta- lacta m agent s appro erasmo by the FDA for treat ment of beta- hemol ytic strep tococ mohan infec tions need not be perfo rmed routi glo becau se nonsu scept ible isola steven are extre kaleb rare in any beta- hemol ytic strep tococ cus and have not been repor james for Strep tococ cus pyoge liv (grou p A). (CLSI ) Not Available [facility] ([facility]) [address] [facility] [address], [place], [address], 01/03/2023 12:07:51 01/02/20 23 01/01/2023 pregn jennifer test, urine HCG negati ve Not Available [address], [address], 01/01/2023 08:18:34 01/02/20 23 01/01/2023 urina lysis , dipst ick Leukocytes Negati ve Not Available [address], [address], 01/01/2023 08:06:41 01/02/20 23 01/01/2023 urina lysis , dipst ick Nitrite negati ve Not Available [address], [address], 01/01/2023 08:06:41 01/02/20 23 01/01/2023 urina lysis , dipst ick Urobilinogen .2 Not Available Chaitanya [address], [address], 01/01/2023 08:06:41 01/02/20 23 01/01/2023 urina lysis , dipst ick Protein Negati ve Not Available [address], [address], 01/01/2023 08:06:41 01/02/20 23 01/01/2023 urina lysis , dipst ick pH 8.0 Not Available [address], [address], 01/01/2023 08:06:41 01/02/20 23 01/01/2023 urina lysis , dipst ick Blood Negati ve Not Available [address], [address], 01/01/2023 08:06:41 01/02/20 23 01/01/2023 urina lysis , dipst ick Specific [place] 1.020 Not Available [address], [address], 01/01/2023 08:06:41 01/02/20 23 01/01/2023 urina lysis , dipst ick Ketone Negati ve Not Available [address], [address], 01/01/2023 08:06:41 01/02/20 23 01/01/2023 urina lysis , dipst ick Bilirubin Negati ve Not Available [address], [address], 01/01/2023 08:06:41 01/02/2001/01/2023 urina lysis , dipst ick Glucose Negati ve Not Available [address], [address], 01/01/2023 08:06:41 01/02/20 23 01/01/2023 urina lysis , dipst ick Appearance Clear Not Available [address], [address], 01/01/2023 08:06:41 01/02/2001/01/2023 urina lysis , dipst ick Color Yellow Not Available [address], [address], 01/01/2023 08:06:41 08/17/2008/18/2025 HCG,B ETA SUBUN IT, QNT HCG,beta subunit,qnt, serum <1 mIU/m L Femal e (Non- pregn ant) 0 - 5 (Post menop ausal ) 0 - 8 Femal e (Preg nant) Weeks of Gesta tion 3 6 - 71 4 10 - 750 5 569 - 0158 6 189 - 59056 7 8903 -4590 63 8 74338 -6446 71 9 16564 -8915 10 10 54123 -7441 77 12 90991 -2106 12 14 74582 - 13321 15 55246 - 30721 16 2515 - 85279 17 6064 - 67206 18 9174 - 78376 Yariel ECLIA metho dolog y Not Available [facility] ([facility]) [address] [facility] [address], [place], [address], 08/18/2025 12:08:03 08/17/2008/17/2025 pregn jennifer test, urine HCG negati ve Not Available [address], [address], 08/17/2025 15:58:58 08/17/2008/17/2025 rapid strep group A, throa t Strep negati ve Not Available [address], [address], 08/17/2025 15:34:14 08/17/2008/17/2025 rapid strep group A, throa t Culture No Not Available [address], [address], 08/17/2025 15:34:14 10/16/20 22 10/08/2022 US, thyro id No observ [facility]ion [facility] [address], [place], [address], 10/21/2022 17:29:40 10/16/20 22 02/12/2021 US, thyro id No observ [facility]ion [facility] [address], [place], [address], 10/16/2022 14:55:57 01/08/20 23 01/07/2023 US, trans vagin al No observ ation record ed. [facility] [address], [place], [address], 01/09/2023 11:36:42 06/02/20 23 06/01/2023 US, obste tric No observ ation record ed. [facility] [address], [place], [address], 06/02/2023 14:44:24 Result Notes None recorded. Problems Name Problem SNOMED Code Status Onset Date Resolution Date Notes Provider Name and Address Organization Details Recorded Time Depressive disorder 86265992 Active Nyasia Stoner null, [place] - [facility] 10:06:36 Hypothyroi dism 17210382 Active Nyasia Stoner null, [place] - [facility] 10:06:48 Chronic constipati on 095241898 Active 2022 Mabel Banks, [employer] [employer] [address], [place], [address] , [place] - [facility] 3 16:08:34 Low back pain 770305783 Active 2022 Mabel Banks, [employer] [employer] [address], [place], [address] , [place] [facility] 16:10:28 Abdominal pain 94318726 Active 2022 Mabel Banks [employer] [address], [place], [address] , [place] [facility] 16:10:30 Pain in pelvis 58028937 Active 2022 Mabel Banks [employer] [employer] [address], [place], [address] , [place] [facility] 16:11:26 Dysmenorrh ea 857979623 Active 2022 Mabel Banks [employer] [employer] [address], [place], [address] , [place] [facility] 16:11:29 Family history of endometrio sis 5561426199243 05 Active 2022 Mabel Banks [employer] [employer] [address], [place], [address] , [place] [facility] 3 22:55:07 Deep pain on intercours e 136254791 Active 2022 Mabel Banks, [employer] [employer] [address], [place], [address] , [place] - [facility] 22:59:05 Problem Notes None recorded. Procedures Surgical History Date Name Laterality Status Provider Name and Address Organization Details Recorded Time 11/20/19 removal of subcutaneous contraceptive completed Gabbie Sanabria [place] - [facility] 01/13/2023 10:52:33 Tonsillectomy completed Nyasia [place] - [facility] 10/03/2022 10:10:29 Imaging Results None recorded. Procedure Notes None recorded. Medical Equipment None Reported. Allergies No known drug allergies Medications Name Sig Start Date Stop Date Status Note LastModified by Organization Details LastModified Time amoxicill in 500 mg capsule 10/03 completed Not Available Not Available Not Available prednison e 10 mg tablet 10/03 completed Not Available Not Available Not Available azithromy graciela 250 mg tablet TAKE 2 TABLETS (500 MG) BY ORAL ROUTE ONCE DAILY FOR 1 DAY THEN 1 TABLET (250 MG) BY ORAL ROUTE ONCE DAILY FOR 4 DAYS 08/17 completed Not Available Not Available Not Available ibuprofen 800 mg tablet TAKE 1 TABLET BY MOUTH EVERY 8 HOURS WITH FOOD NEEDED FOR PAIN 08/17 completed Not Available Not Available Not Available ofloxacin 0.3 % eye drops INSTILL 1 DROP INTO left eye q3 hrs for 2 days and then qid x 5 days 08/17 completed Not Available Not Available Not Available hydrocodo ne 5 mg-acetam inophen 325 mg tablet TAKE 1 TABLET BY MOUTH EVERY 6 HOURS NEEDED FOR PAIN 08/17 completed Not Available Not Available Not Available sumatript an 50 mg tablet 01/15 completed Not Available Not Available Not Available Zyrtec 10 mg tablet Take 1 tablet every day by oral route. active Not Available Not Available No t Available liothyron ine 5 mcg tablet 10/03 completed Not Available Not Available Not Available levothyro xine 75 mcg tablet 10/03 completed Not Available Not Available Not Available levothyro xine 50 mcg tablet 01/01 completed Not Available Not Available Not Available cephalexi n 500 mg capsule Take 1 capsule twice a day by oral route for 7 days. 01/15 completed Not Available Not Available Not Available progester one micronize d 200 mg capsule INSERT 1 CAPSULE VAGINALL Y AT BEDTIME 08/17 completed Not Available Not Available Not Available docusate sodium 100 mg capsule Take 1 capsule every day by oral route for 30 days. active Not Available Not Available No t Available ergocalci ferol (vitamin D2) 1,250 mcg (50,000 unit) capsule Take 12 capsules every week by oral route. 01/15 completed Not Available Not Available Not Available polyethyl charles glycol 3350 17 gram/dose oral powder Take 17 g every day by oral route. active Not Available Not Available No t Available amoxicill in 875 mg-potass ium clavulana te 125 mg tablet 10/03 completed Not Available Not Available Not Available neomycin- polymyxin -hydrocor t 3.5 mg-10,000 unit/mL-1 % ear drops,soledad p 10/03 completed Not Available Not Available Not Available Nexplanon 68 mg subdermal implant Inject by subcutan eous route. 01/01 completed patient had removed the first part of Nov 2022 Not Available Not Available Not Available Vitamin 27 mg iron-800 mcg tablet Take 1 tablet every day by oral route. 08/17 completed Not Available Not Available Not Available Vitals Date Recorded Body height Body mass index (BMI) [Percentile] Per age and sex Body mass index (BMI) Body weight Body temperature Heart rate Oxygen saturation Oxygen saturation in Arterial blood by Pulse oximetry Respiratory rate Pain severity - 0-10 verbal numeric rating [Score] - Reported Systolic And Diastolic Provider Name and Address Organization Details Last Updated DateTime 3 160.02 cm 91 % 28 kg/m2 67452.9 9 g 97.2 [degF] 65 /min 98 % 98 % 18 /min 0 105/70 mm[Hg] Nyasia Stoner [place] - [facility] 3 08:08:31 Date Recorded Body height Body mass index (BMI) [Percentile] Per age and sex Body mass index (BMI) Body weight Pain severity - 0-10 verbal numeric rating [Score] - Reported Systolic And Diastolic Provider Name and Address Organization Details Last Updated DateTime 3 160.02 cm 91 % 28 kg/m2 64000.5 9 g 5 114/70 mm[Hg] Gabbie Sanabria [place] - [facility] 3 15:29:13 Date Recorded Body height Body mass index (BMI) Body mass index (BMI) [Percentile] Per age and sex Body weight Body temperature Heart rate Oxygen saturation Oxygen saturation in Arterial blood by Pulse oximetry Respiratory rate Pain severity - 0-10 verbal numeric rating [Score] - Reported Systolic And Diastolic Provider Name and Address Organization Details Last Updated DateTime 3 160.02 cm 26.8 kg/m2 87 % 97529.1 5 g 98 [degF] 67 /min 98 % 98 % 20 /min 7 110/60 mm[Hg] Nyasia St[place] - [facility] 3 09:51:32 Date Recorded Body weight Heart rate Body temperature Oxygen saturation Oxygen saturation in Arterial blood by Pulse oximetry Respiratory rate Systolic And Diastolic Provider Name and Address Organization Details Last Updated DateTime 5 12536.8 1 g 71 /min 98 [degF] 99 % 99 % 18 /min 122/80 mm[Hg] Nyasia Stoner [place] - [facility] 5 15:41:28 Date Recorded Body height Body mass index (BMI) Body mass index (BMI) [Percentile] Per age and sex Body weight Body temperature Heart rate Oxygen saturation Oxygen saturation in Arterial blood by Pulse oximetry Respiratory rate Pain severity - 0-10 verbal numeric rating [Score] - Reported Systolic And Diastolic Provider Name and Address Organization Details Last Updated DateTime 2 160.02 cm 27.2 kg/m2 89 % 45771.7 3 g 97.4 [degF] 98 /min 97 % 97 % 18 /min 0 122/80 mm[Hg] Nyasia [place] - [facility] 2 10:04:49 Social History Question Answer Notes LastModified by Organizat ion Details LastModified Time Tobacco Smoking Status Never Smoker Nyasia douglas [place] - [facility] 10/03/2022 10:08:21 Do You Have An Advance Directive? No Information not available 10/03/2022 Are You Blind Or Do You Have Difficulty Seeing? No Information not available 10/03/2022 What Is Your Level Of Caffeine Consumption? Moderate Information not available 10/03/2022 In The 14 Days Before Symptom Onset, Have You Had Close Contact With A Laboratory-confir med COVID-19 While That Case Was Ill? No Information not available 10/03/2022 In The 14 Days Before Symptom Onset, Have You Had Close Contact With A Person Who Is Under Investigation For COVID-19 While That Person Was Ill? No Information not available 10/03/2022 Have You Been To An Area Known To Be High Risk For COVID-19? No Information not available 10/03/2022 Are You Deaf Or Do You Have Serious Difficulty Hearing? No Information not available 10/03/2022 What Type Of Diet Are You Following? REGULAR Information not available 10/03/2022 Have You Processed Blood Or Body Fluids From An Ebola Virus Disease Patient Without Appropriate PPE? No Information not available 10/03/2022 Do You Reside In Or Have You Traveled To An Area Where Ebola Virus Transmission Is Active? No Information not available 10/03/2022 What Is The Highest Grade Or Level Of School You Have Completed Or The Highest Degree You Have Received? [id number] Information not available 10/03/2022 Have There Been Any Changes To Your Family Or Social Situation? No Information no t available 10/03/2022 What Is The Fluoride Status Of Your Home? Fluoridated Information not available 10/03/2022 Have You Recently Or Are You Planning To Travel To An Area With Zika Virus? No Information not available 10/03/2022 What Is Your Home Situation? Both Parents Information not available 10/03/2022 Last Menstrual Period? 12/17/2022 Information not available 01/15/2023 Do You Have A Medical Power Of [employer]? No Information not available 10/03/2022 What Was The Date Of Your Most Recent Tobacco Screening? 08/17/2025 Information not available 08/17/2025 How Many Children Do You Have? 0 [email or web address] Information not available 01/15/2023 What Is Your Relationship Status? [email or web address] Information not available 01/15/2023 Are You Sexually Active? Yes Information not available 10/03/2022 Do You Have Any Siblings? 2 Information not available 10/03/2022 Do You Have Smoke And Carbon Monoxide Detectors In Your Home? Yes Information not available 10/03/2022 Are You Passively Exposed To Smoke? No Information no t available 10/03/2022 Has Tobacco Cessation Counseling Been Provided? No Information not available 01/01/2023 Do You Have Difficulty Walking Or Climbing Stairs? No Information not available 10/03/2022 Are You Currently In School? No Information not available 10/03/2022 What Contraceptive Method Was Reported At Start Of This Visit? None [email or web address] Information not available 01/15/2023 Was Counseling Provided To Achieve ? Yes [email or web address] Information not available 01/15/2023 Do You Want To Talk About Contraception Or Prevention During Your Visit Today? No - I Am Hoping To Become In The Near Future [email or web address] Information not available 01/15/2023 Do You Have Any Future Plans To Get ? Yes, I Want To Become Information not available 01/15/2023 What Is Your Reason For Having No Contraceptive Method At Start Of This Visit? Seeking [email or web address] Information not available 01/15/2023 Sex: Female Functional Status Question Answer Note LastModified by Chief Trunkat ion Details LastModified Time Do you use any illicit or recreational drugs? No Information not available 10/03/2022 Do you or have you ever used any other forms of tobacco or nicotine? No Information not available 01/01/2023 What is your level of alcohol consumption? None Information not available 10/03/2022 Are you currently employed? Yes Information not available 10/03/2022 Do you have transportation difficulties? No Information not available 10/03/2022 Are you able to walk independently without assistance or assistive devices? [email or web address] Information not available 10/03/2022 Do you have difficulty doing errands alone? No Information not available 10/03/2022 Are you able to care for yourself independently? 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 No Information not available 10/03/2022 Mental Status Question Answer Note LastModified by Organizat ion Details LastModified Time Do you feel stressed (tense, restless, nervous, or anxious, or unable to sleep at night)? [id number] Information not available 10/03/2022 Do you have difficulty concentrating, remembering or making decisions? No Information no t available 10/03/2022 Are you or have you been involved with bullying? No Information not available 10/03/2022 Family History Relationship Description Onset Age of this Age Resolved Age Notes LastModified by Organization Details LastModified Time Mother Diabetes mellitus Not available 2022 15:24:27 Mother Endometriosi s (clinical) Not available 15:25:07 Mother Disorder of thyroid gland [email or web address] Not available 2022 15:25:47 Maternal Grandfather Myocardial infarction [email or web address] Not available 01/15 15:24:40 Unspecified Relation Hypertensive disorder [email or web address] Not available 2022 10:51:29 Maternal Aunt Endometriosi s (clinical) [email or web address] Not available 15:25:07 Maternal Aunt Endometriosi s (clinical) [email or web address] Not available 15:25:07 Maternal Aunt Disorder of thyroid gland [email or web address] Not available 2022 15:25:47 Maternal Aunt Disorder of thyroid gland [email or web address] Not available 2022 15:25:47 Maternal Aunt Disorder of thyroid gland [email or web address] Not available 2022 15:25:47 Paternal Grandmother Disorder of thyroid gland [email or web address] Not available 2022 15:25:47 Medical History No medical history recorded. Gynecological History Statement/Question Response Flow Moderate Date of LMP 06/13/2025 Duration of Flow (days) 6 Current Control Method Seeking Pre gnancy Age at Menarche 9 Frequency of Cycle (Q days) 26 Sexually Active? Y Date of Last Cervical Culture Menses Monthly N Date of Last Pap Smear LMP Approximate Desired Control Method Seeking Pre gnancy Obstetrics History GPAL:G 2 P 1 0 1 1 Type Value Full Term 1 Living 1 Ectopics 1 Total 2 Immunizations Vaccine Type Date Status Note Provider Nam e and Address Organization Details Recorded Time Tdap 3 completed Not Available [facility] 08/17/2025 15:18:53 Influenza, split virus, quadrivalent, PF 4 completed Not Available [facility] 08/17/2025 15:18:53 varicella 9 completed Nyasia Georgiana null, [place] - [facility] 10/03/2022 10:04:56 MMR 9 completed Nyasia Georg[place] null[place] - [facility] 10/03/2022 10:04:56 IPV 5 completed Nyasia St[place] null[place] - [facility] 10/03/2022 10:04:56 Meningococcal MCV4O 5 completed Nyasia [place] [facility] 10/03/2022 10:04:56 IPV 4 completed Nyasia [place] [facility] 10/03/2022 10:04:56 Hep A, ped/adol, 2 dose 9 completed Nyasia [place] [facility] 10/03/2022 10:04:56 COVID-19, mRNA, LNP-S, PF, 100 mcg/0.5mL dose or 50 mcg/0.25mL dose 2 completed Nyasia [place] null[place] - [facility] 10/03/2022 10:04:56 DTaP-Hep B-IPV 4 completed Nyasia [place] [facility] 10/03/2022 10:04:56 DTaP, unspecified formulation 4 completed Nyasia [place] [facility] 10/03/2022 10:04:56 DTaP, unspecified formulation 4 completed Nyasiagabino St[place] [facility] 10/03/2022 10:04:56 Hep A, ped/adol, 2 dose 8 completed Nyasia [place] [facility] 10/03/2022 10:04:56 HPV9 8 completed Nyasia [place] [facility] 10/03/2022 10:04:56 Hib (PRP-OMP) 4 completed Nyasia [place] [facility] 10/03/2022 10:04:56 IPV 4 completed Ny[place] [facility] 10/03/2022 10:04:56 DTaP, unspecified formulation 9 completed Ny[place] [facility] 10/03/2022 10:04:56 Hep B, adolescent or pediatric 4 completed Ny[place] [facility] 10/03/2022 10:04:56 varicella 9 completed Ny[place] [facility] 10/03/2022 10:04:56 Hib (PRP-OMP) 4 completed Ny[place] [facility] 10/03/2022 10:04:56 MMR 5 completed Ny[place] [facility] 10/03/2022 10:04:56 IPV 9 completed Ny[place] [facility] 10/03/2022 10:04:56 Hib (PRP-OMP) 4 completed Ny[place] [facility] 10/03/2022 10:04:56 meningococcal MCV4P 0 completed Ny[place] [facility] 10/03/2022 10:04:56 Hep B, adolescent or pediatric 4 completed Ny[place] [facility] 10/03/2022 10:04:56 HPV9 5 completed Ny[place] [facility] 10/03/2022 10:04:56 COVID-19, mRNA, LNP-S, PF, 100 mcg/0.5mL dose or 50 mcg/0.25mL dose 2 completed Nyasia [place] - [facility] 10/03/2022 10:04:56 Tdap 5 completed Nyasia [place] [facility] 10/03/2022 10:04:56 Past Encounters Encounter ID Performer Location Encounter Start Date Encounter Closed Date Diagnosis/Indication Diagnosis SNOMED-CT Code Diagnosis ICD10 Code Diagnosis IMO Codes Diagnosis Note [id number] Neva Mireles [address] [address] 10/03/2022 09:36:08 10/03/2022 10:38:54 Hypothyroidism 72545986 E03.9 Depressive disorder 3548 9007 F32.A call to obtain a appointmen t with kamila [facility] Fatigue 87429937 R53.83 Disorder o f thyroid gland 71767944 E07.9 [id number] Neva Mireles [address] [address] 01/01/2023 08:01:53 01/01/2023 09:09:09 Abdominal pain 69882471 R10.9 Acute urin milagros tract infection 937398458 N39.0 sent urine for cx Pain in pelvis 02055303 R10.2 will refer after us results [id number] JAVIER Holt [employer] [address] [place] [address] 01/15/2023 14:32:31 01/15/2023 16:17:43 Chronic constipation 970270585 K59.09 Pain in pelvis 50531323 R10.2 Abdominal pain 09059902 R10.9 Low back pain 325528725 M54.50 Dysmenorrhea 839893386 N 94.6 Family his tory of endometriosis 9064084853 68706 Z84.2 Deep pain on intercourse 599675629 N94.12 [id number] Neva Mireles [address] [address] 01/29/2023 09:31:37 01/29/2023 10:25:41 Conjunctivitis 4446572 H10.9 Streptococ mohan sore throat 39258811 J02.0 contact precaution s discussed [id number] Neva Mireles [address] [address] 08/17/2025 15:15:49 08/17/2025 16:29:26 Pharyngitis 937917923 J02.9 Missed period 06140301 N 92.6 4253367 check preg if neg do pap next week Breast lump 81464857 N63 .0 [id number] Health Concerns Section Related Observation LastModified by Organization Detai ls LastModified Time None Recorded Concern Status LastModified by Organization Details LastModified Time None Recorded Advance Directives Directive N: Payers Insurance Date Sequence Insurance Name Policy Number Policy Camilo Covered Member ID Camilo Member ID Guarantor Name 08/17/2025 1 UMR [id number] Abagayle P Fister [id number] Abagayle Fister 08/17/2025 3 [place] [id number] Sriram Sinclair [id number] Abagayle Fister 10/03/2022 2 UMR [id number] Abagayle Estee [id number] Abagayle Fister 08/17/2025 2 [place] [id number] Clarence Fister [id number] Abagayle Fister Notes Date Note Type Note Provider Name and Address Organization Details Recorded Time 10/03/2022 text/html 16 yr old female presents with excessive tiredness and sleeping. She states she used to be on thyroid medication and she also has a history of depression. Positive depression/anxiety screening in the office today. Neva Mireles, SECTION HAND [address], [place], [address], [place] - [facility] 10/03/2022 10:30:02 01/01/2023 text/html Pediatric Abdomi nal PainReported by Patient Abdominal PainReported by Patient Back PainReported by PatientHPIFor location, patient reportspain is not radiating. For severity, patient reportsimproving. For associated symptoms, patient reportsno fever,no weak limbs,no numbness of the legs/feet,no tingling,no incontinence,no shortness of breath,no unintentional weight loss,no chills,no night sweats,no gait instability,no bowel/bladder symptoms, andno recent increase in stress. For prior imaging, patient reportsmriandx-ray. 17 yr old female with abd pain and low back pain for a few weeks. Also reports nausea and one episode of diarrhea. She states she had the nexplanon implant removed the first part of Nov 2022, has had a period since then. Describes the pain as intermittent, sharp and stabbing.pt states this am after voiding she had pain in her pelvis but it has improved.pt states she was told she has entrometrosis, pt states she would like a referral to a different web operations specialist. she told hers her symptoms and she offered no help Neva Isauro, SE[employer] HAND [address], [place], [address], [place] - [facility] 01/01/2023 14:27:00 01/15/2023 text/html ROS as noted in the HPI Priscila presents today as a new patient with c/o ongoing abdominal and back pain. She had been using Nexplanon for contraception and had her first device placed around 2017 when she was only 12. She had a new Nexplanon placed in 2020 and recently had it removed last month. She states she has seen a provider in [place] who states her sx suggested she has endometriosis. Her mother had endometriosis and had a hysterectomy in her 20s. Priscila states she did obtain a pelvic u/s that was otherwise unremarkable. She had normal appearing ovarian follicles and a small amount cul de sac fluid. She states she wanted to come her d/t her mother's concern for her and to get a second opinion regarding symptoms and suggested plan of care.Priscila sometimes has pain with intercourse in certain positions.She states she has pain all of the time even when she is not bleeding. She points to her pain in the upper aspect of lower right side, not in the adnexal area.I reviewed various possible reasons for her s/s, and extensively reviewed endometriosis, diagnostics, and treatment. I explained, if she does have endometriosis, s/s often improve during .She states she suffers from chronic constipation stating she usually has a BM once per week and has even gone 2 whole weeks. She has had to go to the ER for relief of constipation. I explained this may be the culprit for her ongoing s/s and discussed ways to relieve her constipation. She agrees to try miralax and stool softener. She states she doesn't drink a lot of fluids. Discussed.Will follow closely.Discussed folic acid supplement since wanting to conceive. I spent a minimum of 30 min total [id number] with patient. Mabel Banks, SE[employer] [address], [place], [address], [place] - [facility] 01/15/2023 22:59:55 01/29/2023 text/html Eye PainReported by Patient 17 yr old female presents in early with sore throat, bilateral ear pain, left eye crusty/green drainage. Has been tested for strep, flu and covid at ER this past Thursday and it was negative but not feeling any better. Neva Mireles APRN [address], [place], [address], [facility] - [facility] 01/29/2023 10:27:10 08/17/2025 text/html ROS as noted in the HPI 19 yr old female presents with a few issues. She has had left breast pain for a few days. She has had a recurring cough and sore throat for 2 weeks. She also wanted to have a pap smear. has missed period Neva Mireles APRN [address], [place], [address], [place] - [facility] 08/18/2025 15:41:27 OBGyn Episode No OBEpisode recorded.
--- OUTSIDE RECORDS SUMMARY | 2025-08-22 09:32 | XMS_ITS | Continuity of Care Document ---
[facility] Organization [facility] Address [address] [place] [address] Care Team Providers Care Account Advisor Name Role Phone NEVA BOX Primary Care Provider MORALES GARCIA Referring Provider Assessment No assessment recorded. Plan of Treatment Reminders Order Date Submit Date Provider Last Modified By Organization Details Last Modified Time Details Appointments Establish ed Patient 20 2024 03:20P M Neva Box APRN Not available Not available Not available Lab rapid strep group A, throat 2024 [facility], [address] [place] [address], [id number], 08/17/2025 16:07:59 HCG, intact + beta subunit, quant, serum or plasma 2024 025 [facility], [address] , [facility], [place], [address], 08/18/2025 12:08:03 test, urine 2024 025 [facility], [address] [place] [address], [phone], 08/17/2025 16:08:48 Referral None recorded. Procedures None recorded. Surgeries None recorded. Imaging US, breast, [facility]atera l [facility] ([facility]), [address], [place], [address], 08/18/2025 15:43:57 Medication Orders None recorded. Patient TargetsNo targets recorded. Patient Instructions Encounter Date Encounter Id Patient Instructions Last Modified By Organization Details Last Modified Time 08/17/2025 [id number] sore throat in children: care instructions escobar Not available 08/17/2025 15:59:03 Reason for Referral None Reported. Results Created Date Observation Date Name Description Value Unit Range Abnormal Flag Note LastModifiedBy Organization Detail LastModifiedTime 08/17/2008/18/2025 HCG,B ETA SUBUN IT, QNT HCG,beta subunit,qnt, serum <1 mIU/m L Femal e (Non- pregn ant) 0 - 5 (Post menop ausal ) 0 - 8 Femal e (Preg nant) Weeks of Gesta tion 3 6 - 71 4 10 - 750 5 714 - 0347 6 158 - 65878 7 9790 -2575 63 8 95822 -3450 71 9 886471 -8041 10 10 85929 -8591 77 12 99668 -5999 12 14 89844 - 52755 15 10983 - 58069 16 1244 - 42747 17 7355 - 17265 18 7531 - 00052 Yariel ECLIA metho dolog y Not Available [facility] ([facility]) [address] [facility], [place], [address], 08/18/2025 12:08:03 08/17/2008/17/2025 pregn jennifer test, urine HCG negati ve Not Available [address], [address], 08/17/2025 15:58:58 08/17/2008/17/2025 rapid strep group A, throa t Strep negati ve Not Available [address], [address], 08/17/2025 15:34:14 08/17/2008/17/2025 rapid strep group A, throa t Culture No Not Available [address], [place], [address], 08/17/2025 15:34:14 Result Notes None recorded. Problems Name Problem SNOMED Code Status Onset Date Resolution Date Notes Provider Name and Address Organization Details Recorded Time Depressive disorder 51193566 Active Nyasia Stoenr null, [place] - [facility] 10:06:36 Hypothyroi dism 77194317 Active Nyasia Georgiana null, [place] - [facility] 2 10:06:48 Chronic constipati on 570669032 Active 2022 Mabel Banks, [employer] [address], [place], [address] , [place] - [facility] 3 16:08:34 Low back pain 881986822 Active 2022 Mabel Banks [employer] [address], [place], [address] , [place] - [facility] 16:10:28 Abdominal pain 01532332 Active 2022 Mabel Banks, [employer] [address], [place], [address] , [place] [facility] 16:10:30 Pain in pelvis 49540842 Active 2022 Mabel Banks [employer] [address], [place], [address] , [place] [facility] 16:11:26 Dysmenorrh ea 494190423 Active 2022 Mabel Banks APRN [address], [place], [address] , [place] [facility] 16:11:29 Family history of endometrio sis 7871806648418 05 Active 2022 Mabel Banks [employer] [address], [place], [address] , [place] [facility] 3 22:55:07 Deep pain on intercours e 235013035 Active 2022 Mabel Banks [employer] [address], [place], [address] , [place] [facility] 22:59:05 Problem Notes None recorded. Procedures Surgical History Date Name Laterality Status Provider Name and Address Organization Details Recorded Time 11/20/19 removal of subcutaneous contraceptive completed Gabbie Sanabria [place] - [facility] 01/13/2023 10:52:33 Tonsillectomy completed Nyasia Stoner [place] - [facility] 10/03/2022 10:10:29 Imaging Results [...] Available Not Available Vitals Date Recorded Body weight Heart rate Body temperature Oxygen saturation Oxygen saturation in Arterial blood by Pulse oximetry Respiratory rate Systolic And Diastolic Provider Name and Address Organization Details Last Updated DateTime 5 58295.8 1 g 71 /min 98 [degF] 99 % 99 % 18 /min 122/80 mm[Hg] Nyasia Stoner [place] - [facility] 5 15:41:28 Social History Question Answer Notes LastModified by Organizat ion Details LastModified Time Tobacco Smoking Status Never Smoker Nyasia Stoner null, [place] - [facility] 10/03/2022 10:08:21 Do You [...] Or The Highest Degree You Have Received? LP17790-8 Information not available 10/03/2022 Have There Been [...] not available 10/03/2022 Last Menstrual Period? 12/17/2022 [email or web address] Information not available 01/15/2023 Do You Have A Medical Power Of Anodic Treater? No Information not available 10/03/2022 What Was The Date Of Your Most Recent Tobacco Screening? 08/17/2025 Information not available 08/17/2025 How Many Children Do You Have? 0 [email or web address] Information not available 01/15/2023 What Is Your Relationship Status? [email or web address] Information not available 01/15/2023 Are You Sexually [...] Reported At Start Of This Visit? None [email or web address] Information not available 01/15/2023 Was Counseling Provided To Achieve ? Yes Information not available 01/15/2023 Do You Want To Talk About Contraception Or Prevention During Your Visit Today? No - I Am Hoping To Become In The Near Future [email or web address] Information not available 01/15/2023 Do You Have Any Future Plans To Get ? Yes, I Want To Become [email or web address] Information not available 01/15/2023 What Is Your Reason For Having No Contraceptive Method At Start Of This Visit? 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 Information not available 10/03/2022 Do you have difficulty dressing, bathing, grooming, or toileting? No Information not available 10/03/2022 Mental Status Question Answer Note LastModified by [employer] ion Details LastModified Time Do you feel stressed (tense, restless, nervous, or anxious, or unable to sleep at night)? [id number] Information not available 10/03/2022 Do you have difficulty concentrating, remembering or making decisions? No Information no t available 10/03/2022 Are you or have you been involved with bullying? No Information not available 10/03/2022 Family History Relationship Description Onset Age of this Age Resolved Age Notes LastModified by Organization Details LastModified Time Mother Diabetes mellitus Not available 2022 15:24:27 Mother Endometriosi s (clinical) [email or web address] Not available 15:25:07 Mother Disorder of thyroid gland [email or web address] Not available 2022 15:25:47 Maternal Grandfather Myocardial infarction [email or web address] Not available 01/15 15:24:40 Unspecified Relation Hypertensive disorder [email or web address] Not available 2022 10:51:29 Maternal Aunt Endometriosi s (clinical) Not available 15:25:07 Maternal Aunt Endometriosi s (clinical) [email or web address] Not available 15:25:07 Maternal Aunt Disorder of thyroid gland [email or web address] Not available 2022 15:25:47 Maternal Aunt Disorder of thyroid gland Not available 2022 15:25:47 Maternal Aunt Disorder of thyroid gland [email or web address] Not available 2022 15:25:47 Paternal Grandmother Disorder of thyroid gland [email or web address] Not available 2022 15:25:47 Medical History No [...] Recorded Time Tdap 3 completed Not Available [facility] 08/17/2025 15:18:53 Influenza, split virus, quadrivalent, PF 4 completed Not Available [facility] 08/17/2025 15:18:53 varicella 9 completed Nyasia Georgiana null, [place] - [facility] 10/03/2022 10:04:56 MMR 9 completed Nyasia [place] [facility] 10/03/2022 10:04:56 IPV 5 completed Nyasia [place] [facility] 10/03/2022 10:04:56 Meningococcal [...] [place] [facility] 10/03/2022 10:04:56 DTaP-Hep B-IPV 4 completed Nyasia [place] [facility] 10/03/2022 10:04:56 DTaP, unspecified formulation 4 completed Nyasia [place] [facility] 10/03/2022 10:04:56 DTaP, unspecified formulation 4 completed Nyasia [place] [facility] 10/03/2022 10:04:56 Hep A, ped/adol, 2 dose 8 completed Nyasia [place] [facility] 10/03/2022 10:04:56 HPV9 8 completed Nyasia [place] [facility] 10/03/2022 10:04:56 Hib (PRP-OMP) 4 completed Ynasia [place] [facility] 10/03/2022 10:04:56 [...] - [facility] 10/03/2022 10:04:56 HPV9 5 completed Naysia [place] null[place] [facility] 10/03/2022 10:04:56 COVID-19, mRNA, LNP-S, PF, 100 mcg/0.5mL dose or 50 mcg/0.25mL dose 2 completed Nyasia [place] null[place] [facility] 10/03/2022 10:04:56 Tdap 5 completed Nyasia [place] null[place] [facility] 10/03/2022 10:04:56 Past Encounters Encounter ID Performer Location Encounter Start Date Encounter Closed Date Diagnosis/Indication Diagnosis SNOMED-CT Code Diagnosis ICD10 Code Diagnosis IMO Codes Diagnosis Note [id number] Neva Box APRN [address] [address] 08/17/2025 15:15:49 08/17/2025 16:29:26 Pharyngitis 027895410 J02.9 Missed period 95149900 N 92.6 5850813 check preg if neg do pap next week Breast lump 68909310 N63 .0 2617442 Health Concerns Section Related Observation LastModified by Organization Detai ls LastModified Time None Recorded Concern Status LastModified by Organization Details LastModified Time None Recorded Payers Encounter Date Sequence Insurance Name Policy Number Policy Camilo Covered Member ID Camilo Member ID Guarantor Name 08/17/2025 1 [employer] [id number] Abagayle P Fister [id number] Abagayle Fister 08/17/2025 2 [place] [id number] Clarence Fister [id number] Abagayle Fister Notes Date Note Type Note Provider Name and Address Organization Details Recorded Time 08/17/2025 text/html ROS as noted in the HPI 19 yr old female presents with a few issues. She has had left breast pain for a few days. She has had a recurring cough and sore throat for 2 weeks. She also wanted to have a pap smear. has missed period Neva Box, [employer] [address], [place], [address], [place] - [facility] 08/18/2025 15:41:27 OBGyn Episode No OBEpisode recorded.
== END 2025-08-22 23:59 | disposition home or self-care (01) ==
LOC: RAD 09:30
PROVIDERS: PCP Nurse Practitioner Family; Visit Provider Nurse Practitioner Family
DX: N63.20 Unspecified lump in the left breast, unspecified quadrant (principal)
CPT/HCPCS: 76641

== ENCOUNTER 2025-08-23 07:35 | Outpatient (CLI) | payer OTHER, BC, SELFPAY | END 2025-08-23 23:59 | disposition home or self-care (01) | LOC: LAB 07:36 | PROVIDERS: PCP Nurse Practitioner Family; Visit Provider Obstetrics & Gynecology | DX: N91.1 Secondary amenorrhea (principal) | CPT/HCPCS: 36415; 84702 ==

== ENCOUNTER 2025-09-08 10:30 | Outpatient (CLI) | payer OTHER, BC, SELFPAY ==
--- OUTSIDE RECORDS SUMMARY | 2025-09-08 10:34 | XMS_ITS | Data Portability ---
Author Organization [facility] Address [address] [place] [address] Care Team Providers Care Coring Machine Operator Name Role Phone NEVA MIRELES Primary Care Provider MORALES GARCIA Referring Provider Assessment Encounter Date Assessment Date Assessment LastModified by Organization Details LastModified Time 01/15/2023 01/15/2023 Reproductive life plan discussed. Patient does plan to have children in the future. Not available 01/15/2023 22:54:10 Plan of Treatment Reminders Order Date Submit Date Provider Last Modified By Organization Details Last Modified Time Details Appointments None recorded. Lab rapid strep group A, throat 2024 025 [facility], [address] [place] [address], [id number], 16:07:59 HCG, intact + beta subunit, quant, serum or plasma 2024 025 [facility], [address], [facility], [place], [address], 12:08:03 test, urine 2024 025 [facility], [address] [place] [address], [address], 16:08:48 rapid strep group A, throat 2022 023 [facility], [address] [place] [address], [address], 3 10:24:53 urinalysis, dipstick 2022 023 [facility], [address] [place] [address], [address], 3 11:19:58 test, urine 2022 023 [facility], [address] [place] [address], [address], 3 09:10:21 culture, urine 2022 023 [facility], [address], Angel F, [place], [address], 3 12:07:51 TSH + free T4, serum 2021 022 [facility], [address], [place], [place], [address], 2 00:05:58 thyroperoxi dase Ab, serum 2021 022 [facility], [address], Angel F, [place], [address], 2 00:06:01 CMP, serum or plasma 2021 022 [facility], [address], [place], [place], [address], 2 00:05:59 CBC w/ auto diff 2021 022 [facility], [address], Angel F, [place], [address], 2 00:05:59 vitamin D, 25-hydroxy, total, serum 2021 022 [facility], [address], Angel F, [place], [address], 2 00:06:00 vitamin B12 + folate, serum or blood 2021 022 PER[facility], [address], [place], [place], [address], 2 00:06:00 Referral None recorded. Procedures None recorded. Surgeries None recorded. Imaging US, breast, unilateral 2024 025 [facility] (Scheduling), [address], [place], [address], 5 14:38:21 US, transvagina l 2022 023 [facility] (Scheduling), [address], [place], [address], 3 15:38:28 US, thyroid 2021 022 [facility] (X-Ray), [address], [place], [address], 2 13:02:32 Medication Orders Zithromax Z-Kumar 250 mg tablet 2022 023 [facility], [address] [place] [address] Janice, [place], [id number], 5 15:24:50 ofloxacin 0.3 % eye drops 2022 023 [facility], [address] [place] [address] S, [place], [id number], 5 15:25:05 Miralax 17 gram/dose oral powder 2022 023 [facility], [address] [place], [place] [address], [id number], 3 16:11:10 Colace 100 mg capsule 2022 023 [email or web address] [facility], [address] [place], [place] [address], [id number], 3 16:15:01 cephalexin 500 mg capsule 2022 023 [email or web address] [facility], [address], [id number], 15:20:52 Patient TargetsNo targets recorded. Patient Instructions Encounter Date Encounter Id Patient Instructions Last Modified By Organization Details Last Modified Time 01/15/2023 [id number] See HPI Encourag e medication as directed Increase fiber in diet-encourage fruits/veggies Encourage increased fluids 80-100oz water/daily Rto 6 wks for AWE/pelvic exam [email or web address] Not available 01/15/2023 22:59:39 01/29/2023 [id number] pinkeye: care instructions [email or web address] Not available 01/29/2023 10:24:53 08/17/2025 [id number] sore throat in children: care instructions [email or web address] Not available 08/17/2025 15:59:03 Reason for Referral None Reported. Results Created Date Observation Date Name Description Value Unit Range Abnormal Flag Note LastModifiedBy Organization Detail LastModifiedTime 10/03/2010/04/2022 TSH+F REE T4 TSH 3.930 uIU/m L 0.450- 4.500 Not Available [facility] ([facility]) [address] [place], [address], 10/07/2022 00:05:58 10/03/20 22 10/04/2022 TSH+F REE T4 T4,free(dire ct) 1.11 NG/dL 0.93-1 .60 Not Available [facility] ([facility]) [address] [facility], [place], [address], 10/07/2022 00:05:58 10/03/20 22 10/04/2022 CBC WITH DIFFE RENTI AL/PL ATELE T WBC 6.2 x10e3 /uL 3.4-10 .8 Not Available [facility] ([facility]) [address] [facility], [place], [address], 10/07/2022 00:05:59 10/03/20 22 10/04/2022 CBC WITH DIFFE RENTI AL/PL ATELE T RBC 4.65 x10e6 /uL 3.77-5 .28 Not Available [facility] ([facility]) [address] [place], [address], 10/07/2022 00:05:59 10/03/20 22 10/04/2022 CBC WITH DIFFE RENTI AL/PL ATELE T hemoglobin 13.4 g/dL 11.1-1 5.9 Not Available [facility] ([facility]) [address] [place], [address], 10/07/2022 00:05:59 10/03/20 22 10/04/2022 CBC WITH DIFFE RENTI AL/PL ATELE T hematocrit 40.2 % 34.0-4 6.6 Not Available [facility] ([facility]) [address] [place], [address], 10/07/2022 00:05:59 10/03/20 22 10/04/2022 CBC WITH DIFFE RENTI AL/PL ATELE T MCV 87 fL 79-97 Not Available [facility] ([facility]) [address] [place], [address], 10/07/2022 00:05:59 10/03/20 22 10/04/2022 CBC WITH DIFFE RENTI AL/PL ATELE T MCH 28.8 pg 26.6-3 3.0 Not Available [facility] ([facility]) [address] [place], [address], 10/07/2022 00:05:59 10/03/20 22 10/04/2022 CBC WITH DIFFE RENTI AL/PL ATELE T MCHC 33.3 g/dL 31.5-3 5.7 Not Available [facility] ([facility]) [address] [facility], [place], [address], 10/07/2022 00:05:59 10/03/20 22 10/04/2022 CBC WITH DIFFE RENTI AL/PL ATELE T RDW 13.4 % 11.7-1 5.4 Not Available [facility] ([facility]) [address] [facility], [place], [address], 10/07/2022 00:05:59 10/03/20 22 10/04/2022 CBC WITH DIFFE RENTI AL/PL ATELE T platelets 270 x10e3 /uL 150-45 0 Not Available [facility] ([facility]) [address] [facility], [place], [address], 10/07/2022 00:05:59 10/03/20 22 10/04/2022 CBC WITH DIFFE RENTI AL/PL ATELE T neutrophils 59 % not estab. Not Available [facility] ([facility]) [address] [facility], [place], [address], 10/07/2022 00:05:59 10/03/20 22 10/04/2022 CBC WITH DIFFE RENTI AL/PL ATELE T lymphs 32 % not estab. Not Available [facility] ([facility]) [address] [facility], [place], [address], 10/07/2022 00:05:59 10/03/20 22 10/04/2022 CBC WITH DIFFE RENTI AL/PL ATELE T monocytes 8 % not estab. Not Available [facility] ([facility]) [address] [place], [address], 10/07/2022 00:05:59 10/03/20 22 10/04/2022 CBC WITH DIFFE RENTI AL/PL ATELE T eos 1 % not estab. Not Available [facility] ([facility]) [address] [place], [address], 10/07/2022 00:05:59 10/03/20 22 10/04/2022 CBC WITH DIFFE RENTI AL/PL ATELE T basos 0 % not estab. Not Available [facility] ([facility]) [address] [place], [address], 10/07/2022 00:05:59 10/03/20 22 10/04/2022 CBC WITH DIFFE RENTI AL/PL ATELE T immature cells USER SUPPORT SPECIALIST Not Available [facility] ([facility]) [address] [place], [address], 10/07/2022 00:05:59 10/03/20 22 10/04/2022 CBC WITH DIFFE RENTI AL/PL ATELE T neutrophils (absolute) 3.6 x10e3 /uL 1.4-7. 0 Not Available [facility] ([facility]) [address] [place], [address], 10/07/2022 00:05:59 10/03/20 22 10/04/2022 CBC WITH DIFFE RENTI AL/PL ATELE T lymphs (absolute) 2.0 x10e3 /uL 0.7-3. 1 Not Available [facility] ([facility]) [address] [place], [address], 10/07/2022 00:05:59 10/03/20 22 10/04/2022 CBC WITH DIFFE RENTI AL/PL ATELE T monocytes(ab solute) 0.5 x10e3 /uL 0.1-0. 9 Not Available [facility] ([facility]) [address] [place], [address], 10/07/2022 00:05:59 10/03/20 22 10/04/2022 CBC WITH DIFFE RENTI AL/PL ATELE T eos (absolute) 0.1 x10e3 /uL 0.0-0. 4 Not Available [facility] ([facility]) [address] [place], [address], 10/07/2022 00:05:59 10/03/20 22 10/04/2022 CBC WITH DIFFE RENTI AL/PL ATELE T baso (absolute) 0.0 x10e3 /uL 0.0-0. 2 Not Available [facility] ([facility]) [address] [place], [address], 10/07/2022 00:05:59 10/03/20 22 10/04/2022 CBC WITH DIFFE RENTI AL/PL ATELE T immature granulocytes 0 % not estab. Not Available [facility] ([facility]) [address] [place], [address], 10/07/2022 00:05:59 10/03/20 22 10/04/2022 CBC WITH DIFFE RENTI AL/PL ATELE T immature grans (abs) 0.0 x10e3 /uL 0.0-0. 1 Not Available [facility] ([facility]) [address] [place], [address], 10/07/2022 00:05:59 10/03/20 22 10/04/2022 CBC WITH DIFFE RENTI AL/PL ATELE T NRBC USER SUPPORT SPECIALIST Not Available [facility] ([facility]) [address] [place], [address], 10/07/2022 00:05:59 10/03/20 22 10/04/2022 CBC WITH DIFFE RENTI AL/PL ATELE T hematology comments: USER SUPPORT SPECIALIST Not Available [facility] ([facility]) [address] [place], [address], 10/07/2022 00:05:59 10/03/20 22 10/04/2022 COMP. METAB OLIC PANEL (14) glucose 79 mg/dL 70-99 Not Available [facility] ([facility]) [address] [place], [address], 10/07/2022 00:05:59 10/03/20 22 10/04/2022 COMP. METAB OLIC PANEL (14) BUN 9 mg/dL 6-20 Not Available [facility] ([facility]) [address] [place], [address], 10/07/2022 00:05:59 10/03/20 22 10/04/2022 COMP. METAB OLIC PANEL (14) creatinine 0.61 mg/dL 0.57-1 .00 Not Available [facility] ([facility]) [address] [place], [address], 10/07/2022 00:05:59 10/03/20 22 10/04/2022 COMP. METAB OLIC PANEL (14) eGFR 133 mL/mi n/1.7 3 >59 Not Available [facility] ([facility]) [address] [place], [address], 10/07/2022 00:05:59 10/03/20 22 10/04/2022 COMP. METAB OLIC PANEL (14) BUN/creatini ne ratio 15 9-23 Not Available [facility] ([facility]) [address] [place], [address], 10/07/2022 00:05:59 10/03/20 22 10/04/2022 COMP. METAB OLIC PANEL (14) sodium 139 mmol/ L 134-14 4 Not Available [facility] ([facility]) [address] [place], [address], 10/07/2022 00:05:59 10/03/20 22 10/04/2022 COMP. METAB OLIC PANEL (14) potassium 4.2 mmol/ L 3.5-5. 2 Not Available [facility] ([facility]) [address] [facility], [place], [address], 10/07/2022 00:05:59 10/03/20 22 10/04/2022 COMP. METAB OLIC PANEL (14) chloride 102 mmol/ L 96-106 Not Available [facility] ([facility]) [address] [place], [address], 10/07/2022 00:05:59 10/03/20 22 10/04/2022 COMP. METAB OLIC PANEL (14) carbon dioxide, total 23 mmol/ L 20-29 Not Available [facility] ([facility]) [address] [place], [address], 10/07/2022 00:05:59 10/03/20 22 10/04/2022 COMP. METAB OLIC PANEL (14) calcium 9.6 mg/dL 8.7-10 .2 Not Available [facility] ([facility]) [address] [place], [address], 10/07/2022 00:05:59 10/03/20 22 10/04/2022 COMP. METAB OLIC PANEL (14) protein, total 7.4 g/dL 6.0-8. 5 Not Available [facility] ([facility]) [address] [place], [address], 10/07/2022 00:05:59 10/03/20 22 10/04/2022 COMP. METAB OLIC PANEL (14) albumin 4.9 g/dL 3.9-5. 0 Not Available [facility] ([facility]) [address] [place], [address], 10/07/2022 00:05:59 10/03/20 22 10/04/2022 COMP. METAB OLIC PANEL (14) globulin, total 2.5 g/dL 1.5-4. 5 Not Available [facility] ([facility]) [address] [place], [address], 10/07/2022 00:05:59 10/03/20 22 10/04/2022 COMP. METAB OLIC PANEL (14) A/G ratio 2.0 1.2-2. 2 Not Available [facility] ([facility]) [address] [facility], [place], [address], 10/07/2022 00:05:59 10/03/20 22 10/04/2022 COMP. METAB OLIC PANEL (14) bilirubin, total 0.6 mg/dL 0.0-1. 2 Not Available [facility] ([facility]) [address] [place], [address], 10/07/2022 00:05:59 10/03/20 22 10/04/2022 COMP. METAB OLIC PANEL (14) alkaline phosphatase 71 IU/L 42-106 Not Available [facility]) [address] [place], [address], 10/07/2022 00:05:59 10/03/20 22 10/04/2022 COMP. METAB OLIC PANEL (14) AST (SGOT) 18 IU/L 0-40 Not Available [facility] ([facility]) [address] [place], [address], 10/07/2022 00:05:59 10/03/20 22 10/04/2022 COMP. METAB OLIC PANEL (14) ALT (SGPT) 13 IU/L 0-32 Not Available [facility] ([facility]) [address] [place], [address], 10/07/2022 00:05:59 10/03/20 22 10/04/2022 VITAM IN B12 AND FOLAT E vitamin B12 567 pg/mL 232-12 45 Not Available [facility] ([facility]) [address] [place], [address], 10/07/2022 00:06:00 12/16/10/04/2022 VITAM IN B12 AND FOLAT E folate (folic acid), serum 11.9 NG/mL >3.0 A serum folat e gualberto ntrat ion of less than 3.1 ng/mL is consi dered to repre sent clini mohan defic iency . Not Available [facility] ([facility]) [address] [facility], [place], [address], 10/07/2022 00:06:00 10/03/20 22 10/04/2022 VITAM IN [...] 1. IOM (Inst itute of Medic ine). 2010. Dieta ry refer ence maricruz es for calci um and D. Kendall garcia [place]: The [facility] . 2. Brianne melara MF, Minerva vance [place], Casey off-F errar i GRIMM, et al. Evalu ation , treat ment, and preve ntion of vitam in D defic iency : an Endoc rine Socie ty clini mohan pract ice guide line. JCEM. 2010; 96(7) :1911 -30. Not Available [facility] ([facility]) [address] [facility], [place], [address], 10/07/2022 00:06:00 10/03/20 22 10/04/2022 THYRO ID ANTIB ODIES thyroid peroxidase (tpo) Ab <9 IU/mL 0-26 Not Available [facility] ([facility]) [address] [facility], [place], [address], 10/07/2022 00:06:01 10/03/20 22 10/06/2022 THYRO ID ANTIB ODIES thyroglobuli n antibody <1.0 IU/mL 0.0-0. 9 Thyro globu mark Antib ferny measu red by Carmine gale Coult er Metho dolog y Not Available [facility] ([facility]) [address] [facility], [place], [address], 10/07/2022 00:06:01 01/02/20 23 01/03/2023 URINE CULTU RE, ROUTI NE urine culture, routine Final report abnormal Not Available [facility] ([facility]) [address] [facility], [place], [address], 01/03/2023 12:07:51 01/02/20 23 01/03/2023 URINE CULTU [...] p A). (CLSI ) Not Available [facility] ([facility]) [address] [facility], [place], [address], 01/03/2023 12:07:51 01/02/2001/01/2023 pregn jennifer test, urine HCG negati ve Not Available [address], [address], 01/01/2023 08:18:34 01/02/20 23 01/01/2023 urina lysis , dipst ick Leukocytes Negati ve Not Available [address], [address], 01/01/2023 08:06:41 01/02/20 23 01/01/2023 urina lysis , dipst ick Nitrite negati ve Not Available [address], [address], 01/01/2023 08:06:41 01/02/20 23 01/01/2023 urina lysis , dipst ick Urobilinogen .2 Not Available Chaitanya [address], [address], 01/01/2023 08:06:41 01/02/20 23 01/01/2023 urina lysis , dipst ick Protein Negati ve Not Available [address], [address], 01/01/2023 08:06:41 01/02/2001/01/2023 urina lysis , dipst ick pH 8.0 Not Available [address], [address], 01/01/2023 08:06:41 01/02/20 23 01/01/2023 urina lysis , dipst ick Blood Negati ve Not Available [address], [address], 01/01/2023 08:06:41 01/02/2001/01/2023 urina lysis , dipst ick Specific Seanor 1.020 Not Available [address], [address], 01/01/2023 08:06:41 01/02/20 23 01/01/2023 urina lysis , dipst ick Ketone Negati ve Not Available [address], [address], 01/01/2023 08:06:41 01/02/20 23 01/01/2023 urina lysis , dipst ick Bilirubin Negati ve Not Available [address], [address], 01/01/2023 08:06:41 01/02/20 23 01/01/2023 urina lysis , dipst ick Glucose Negati ve Not Available [address], [address], 01/01/2023 08:06:41 01/02/2001/01/2023 urina lysis , dipst ick Appearance Clear Not Available [address], [address], 01/01/2023 08:06:41 01/02/2001/01/2023 urina lysis , dipst ick Color Yellow Not Available [address], [address], 01/01/2023 08:06:41 08/17/20 25 08/18/2025 HCG,B ETA SUBUN IT, QNT HCG,beta subunit,qnt, serum <1 mIU/m L Femal e (Non- pregn ant) 0 - 5 (Post menop ausal ) 0 - 8 Femal e (Preg nant) Weeks of Gesta tion 3 6 - 71 4 10 - 007 5 764 - 9168 6 664 - 63866 7 7168 -9970 63 8 79942 -6668 71 9 [address] 10 10 13642 -5573 77 12 71930 -3241 12 14 05556 - 87391 15 76176 - 57379 16 8974 - 59882 17 6392 - 50115 18 2546 - 14329 Yariel ECLIA metho dolog y Not Available [facility] ([facility]) [address] [facility], [place], [address], 08/18/2025 12:08:03 08/17/20 25 08/17/2025 pregn jennifer test, urine HCG negati ve Not Available [address], [address], 08/17/2025 15:58:58 08/17/2008/17/2025 rapid strep group A, throa t Strep negati ve Not Available [address], [address], 08/17/2025 15:34:14 08/17/2008/17/2025 rapid strep group A, throa t Culture No Not Available [address], [address], 08/17/2025 15:34:14 10/16/20 22 10/08/2022 US, thyro id No observ ation record ed. [place] [address], [place], [address], 10/21/2022 17:29:40 10/16/20 22 02/12/2021 US, thyro id No observ [facility] [address], [place], [address], 10/16/2022 14:55:57 01/08/20 23 01/07/2023 US, trans vagin al No observ ation record ed. [facility] [address], [place], [address], 01/09/2023 11:36:42 06/02/20 23 06/01/2023 US, obste tric No observ ation record ed. [email or web address] [address], [place], [address], 06/02/2023 14:44:24 08/24/20 25 08/22/2025 US, philip camarena No observ ation record ed. [facility] [address], [place], [address], 08/30/2025 10:24:33 Result Notes None recorded. Problems Name Problem SNOMED Code Status Onset Date Resolution Date Notes Provider Name and Address Organization Details Recorded Time Depressive disorder 57164289 Active Nyasia Stoner null, [place] - [facility] 2 10:06:36 Hypothyroi dism 29895862 Active Nyasia Stoner null, [place] - [facility] 2 10:06:48 Chronic constipati on 190006228 Active 2022 Mabel Banks APRN [address], [place], [address] , [place] - [facility] 3 16:08:34 Low back pain 159395224 Active 2022 Mabel Banks EMPLOYEE RELATIONS REPRESENTATIVE [address], [place], [address] , [place] [facility] 3 16:10:28 Abdominal pain 63933259 Active 2022 Mabel Banks EMPLOYEE RELATIONS REPRESENTATIVE [address], [place], [address] , [place] [facility] 3 16:10:30 Pain in pelvis 73171568 Active 2022 Mabel Banks EMPLOYEE RELATIONS REPRESENTATIVE [address], [place], [address] , [place] [facility] 3 16:11:26 Dysmenorrh ea 907865973 Active 2022 Mabel Banks EMPLOYEE RELATIONS REPRESENTATIVE [address], [place], [address] , [place] [facility] 3 16:11:29 Family history of endometrio sis 5782173704983 05 Active 2022 Mabel Banks APRN [address], [place], [address] , [place] - [facility] 3 22:55:07 Deep pain on intercours e 267293352 Active 2022 Mabel Banks, EMPLOYEE RELATIONS REPRESENTATIVE [address], [place], [address] , [place] - [facility] 3 22:59:05 Problem Notes None recorded. Procedures Surgical History Date Name Laterality Status Provider Name and Address Organization Details Recorded Time 11/20/19 removal of subcutaneous contraceptive completed Gabbie San[place] - [facility] 01/13/2023 10:52:33 Tonsillectomy completed Nyasia [place] - [facility] 10/03/2022 10:10:29 Imaging Results None [...] weight Body temperature Heart rate Oxygen saturation Respiratory rate Pain severity - 0-10 verbal numeric rating [Score] - Reported Systolic And Diastolic Provider Name and Address Organization Details Last Updated DateTime 3 160.02 cm 91 % 28 kg/m2 92208.9 9 g 97.2 [degF] 65 /min 98 % 18 /min 0 105/70 mm[Hg] Nyasia ADAMS - [facility] 3 08:08:31 Date Recorded Body height Body mass index (BMI) [Percentile] Per age and sex Body mass index (BMI) Body weight Pain severity - 0-10 verbal numeric rating [Score] - Reported Systolic And Diastolic Provider Name and Address Organization Details Last Updated DateTime 3 160.02 cm 91 % 28 kg/m2 76187.5 9 g 5 114/70 mm[Hg] Gabbie Sanabria [place] - [facility] 3 15:29:13 Date Recorded Body height Body mass index (BMI) Body mass index (BMI) [Percentile] Per age and sex Body weight Body temperature Heart rate Oxygen saturation Respiratory rate Pain severity - 0-10 verbal numeric rating [Score] - Reported Systolic And Diastolic Provider Name and Address Organization Details Last Updated DateTime 3 160.02 cm 26.8 kg/m2 87 % 99871.1 5 g 98 [degF] 67 /min 98 % 20 /min 7 110/60 mm[Hg] Nyasia Stoner [place] - [facility] 3 09:51:32 Date Recorded Body weight Heart rate Body temperature Oxygen saturation Respiratory rate Systolic And Diastolic Provider Name and Address Organization Details Last Updated DateTime 5 31022.8 1 g 71 /min 98 [degF] 99 % 18 /min 122/80 mm[Hg] Nyasia Stoner [place] - [facility] 5 15:41:28 Date Recorded Body height Body mass index (BMI) Body mass index (BMI) [Percentile] Per age and sex Body weight Body temperature Heart rate Oxygen saturation Respiratory rate Pain severity - 0-10 verbal numeric rating [Score] - Reported Systolic And Diastolic Provider Name and Address Organization Details Last Updated DateTime 2 160.02 cm 27.2 kg/m2 89 % 72912.7 3 g 97.4 [degF] 98 /min 97 % 18 /min 0 122/80 mm[Hg] Nyasia Stoner [place] - [facility] 2 10:04:49 Social History Question Answer Notes LastModified by Organizat ion Details LastModified Time Tobacco Smoking Status Never Smoker Nyasia douglas, [place] - [facility] 10/03/2022 10:08:21 Do You [...] Or The Highest Degree You Have Received? [id number] Information not available 10/03/2022 Have There Been [...] not available 10/03/2022 Last Menstrual Period? 12/17/2022 [email or web address] Information not available 01/15/2023 Do You Have A Medical Power Of Steel Shot Header Operator? No Information not available 10/03/2022 What Was The Date Of Your Most Recent Tobacco Screening? 08/17/2025 Information not available 08/17/2025 How Many Children Do You Have? 0 [email or web address] Information not available 01/15/2023 What Is Your Relationship Status? Information not available 01/15/2023 Are You Sexually [...] Reported At Start Of This Visit? None [email or web address] Information not available 01/15/2023 Was Counseling Provided To Achieve ? Yes [email or web address] Information not available 01/15/2023 Do You Want To Talk About Contraception Or Prevention During Your Visit Today? No - I Am Hoping To Become In The Near Future [email or web address] Information not available 01/15/2023 Do You Have Any Future Plans To Get ? Yes, I Want To Become [email or web address] Information not available 01/15/2023 What Is Your Reason For Having No Contraceptive Method At Start Of This Visit? 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 No Information not available 10/03/2022 Mental Status Question Answer Note LastModified by Organizat ion Details LastModified Time Do you feel stressed (tense, restless, nervous, or anxious, or unable to sleep at night)? [id number] Information not available 10/03/2022 Do you have difficulty concentrating, remembering or making decisions? No Information no t available 10/03/2022 Are you or have you been involved with bullying? No Information not available 10/03/2022 Family History Relationship Description Onset Age of this Age Resolved Age Notes LastModified by Organization Details LastModified Time Mother Diabetes mellitus [email or web address] Not available 2022 15:24:27 Mother Endometriosi s (clinical) [email or web address] Not available 15:25:07 Mother Disorder of thyroid gland [email or web address] Not available 2022 15:25:47 Maternal Grandfather Myocardial infarction [email or web address] Not available 01/15 15:24:40 Unspecified Relation Hypertensive disorder Not available 2022 10:51:29 Maternal Aunt Endometriosi s (clinical) [email or web address] Not available 15:25:07 Maternal Aunt Endometriosi s (clinical) [email or web address] Not available 15:25:07 Maternal Aunt Disorder of thyroid gland [email or web address] Not available 2022 15:25:47 Maternal Aunt Disorder of thyroid gland [email or web address] Not available 2022 15:25:47 Maternal Aunt Disorder of thyroid gland [email or web address] Not available 2022 15:25:47 Paternal Grandmother Disorder of thyroid gland [email or web address] Not available 2022 15:25:47 Medical History No [...] Recorded Time Tdap 3 completed Not Available [facility] 08/17/2025 15:18:53 Influenza, split virus, quadrivalent, PF 4 completed Not Available [facility] 08/17/2025 15:18:53 varicella 9 completed Nyasia [...] A, ped/adol, 2 dose 9 completed Nyasia Egorgiana null, [place] - [facility] 10/03/2022 10:04:56 COVID-19, mRNA, LNP-S, PF, 100 mcg/0.5mL dose or 50 mcg/0.25mL dose 2 completed Nyasiagabino Stoner null, [place] - [facility] 10/03/2022 10:04:56 DTaP-Hep B-IPV 4 completed Nyasia [place] [facility] 10/03/2022 10:04:56 DTaP, unspecified formulation 4 completed Nyasia Georg[place] [facility] 10/03/2022 10:04:56 DTaP, unspecified formulation 4 completed Nyasiagabino St[place] [facility] 10/03/2022 10:04:56 Hep A, ped/adol, 2 dose 8 completed Nyasiagabino Stoner [place] [facility] [...] ICD10 Code Diagnosis IMO Codes Diagnosis Note [id number] Neva Mireles [address] [address] 10/03/2022 09:36:08 10/03/2022 10:38:54 Hypothyroidism 98015783 E03.9 Depressive disorder 3548 9007 F32.A call to obtain a appointmen t with kamila donal [facility] Fatigue 59548064 R53.83 Disorder o f thyroid gland 72777679 E07.9 [id number] Neva Mireles [address] [address] 01/01/2023 08:01:53 01/01/2023 09:09:09 Abdominal pain 86875483 R10.9 Acute urin milagros tract infection 071893969 N39.0 sent urine for cx Pain in pelvis 98728438 R10.2 will refer after us results [id number] JAVIER Holt [employer] [address] [place] [address] [place] [address] 01/15/2023 14:32:31 01/15/2023 16:17:43 Chronic constipation 315055057 K59.09 Pain in pelvis 12691141 R10.2 Abdominal pain 55316514 R10.9 Low back pain 480956336 M54.50 Dysmenorrhea 420982215 N 94.6 Family his tory of endometriosis 5760374846 57695 Z84.2 Deep pain on intercourse 591429942 N94.12 [id number] Neva Mireles [address] [address] 01/29/2023 09:31:37 01/29/2023 10:25:41 Conjunctivitis 0160206 H10.9 Streptococ mohan sore throat 33565211 J02.0 contact precaution s discussed [id number] Neva Mireles [address] [address] 08/17/2025 15:15:49 08/17/2025 16:29:26 Pharyngitis 944040964 J02.9 Missed period 18471212 N 92.6 7751867 check preg if neg do pap next week Breast lump 88819602 N63 .0 [id number] Health Concerns Section Related Observation LastModified by Organization Detai ls LastModified Time None Recorded Concern Status LastModified by Organization Details LastModified Time None Recorded Advance Directives Directive N: Payers Insurance Date Sequence Insurance Name Policy Number Policy Camilo Covered Member ID Camilo Member ID Guarantor Name 08/28/2025 1 UMR [id number] Abagayle P Fister [id number] Abagayle Fister 08/17/2025 3 [place] [id number] Sriram Sinclair [id number] Abagayle Fister 10/03/2022 2 UMR [id number] Abagayle Estee [id number] Abagayle Fister 08/28/2025 2 [place] [id number] Clarence Fister [id number] Abagayle Fister Notes Date Note Type Note Provider Name and Address Organization Details Recorded Time 10/03/2022 text/html 16 yr old female presents with excessive tiredness and sleeping. She states she used to be on thyroid medication and she also has a history of depression. Positive depression/anxiety screening in the office today. Neva Mireles, EMPLOYEE RELATIONS REPRESENTATIVE [address], [place], [address], [place] - [facility] 10/03/2022 10:30:02 01/01/2023 text/html [...] would like a referral to a different prison librarian. she told hers her symptoms and she offered no help Neva Del Rioramirez, EMPLOYEE RELATIONS REPRESENTATIVE [address], [place], [address], [place] - [facility] 01/01/2023 14:27:00 01/15/2023 text/html [...] states she has seen a provider in [place] who states her sx suggested she has [...] spent a minimum of 30 min total qosg-lv-[id number] with patient. Mabel Banks, EMPLOYEE RELATIONS REPRESENTATIVE [address], [place], [address], [facility] - [facility] 01/15/2023 22:59:55 01/29/2023 text/html Eye PainReported by Patient 17 yr old female presents in early with sore throat, bilateral ear pain, left eye crusty/green drainage. Has been tested for strep, flu and covid at ER this past Thursday and it was negative but not feeling any better. Neva Mireles APRN [address], [place], [address], [facility] - [facility] 01/29/2023 10:27:10 08/17/2025 text/html ROS as noted in the HPI 19 yr old female presents with a few issues. She has had left breast pain for a few days. She has had a recurring cough and sore throat for 2 weeks. She also wanted to have a pap smear. has missed period Neva Mireles APRN [address], [place], [address], [facility] - [facility] 08/18/2025 15:41:27 OBGyn Episode No OBEpisode recorded.
--- OUTSIDE RECORDS SUMMARY | 2025-09-08 10:34 | XMS_ITS | Continuity of Care Document ---
Author Organization [facility] Address [address] [place] [address] Care Team Providers Care Teenage Program Director Name Role Phone NEVA BOX Primary Care Provider MORALES GARCIA Referring Provider [phone] Assessment No assessment recorded. Plan of Treatment Reminders Order Date Submit Date Provider Last Modified By Organization Details Last Modified Time Details Appointments None recorded. Lab rapid strep group A, throat 2024 [facility], [address] [place] [address], [address], 16:07:59 HCG, intact + beta subunit, quant, serum or plasma 2024 [place] [facility], [address] , [facility], [place], [address], 12:08:03 test, urine 2024 [facility], [address] [place] [address], [address], 16:08:48 Referral None recorded. Procedures None recorded. Surgeries None recorded. Imaging US, breast, unilateral 2024 [facility] ([facility]), [address], [place], [address], 14:38:21 Medication Orders None recorded. Patient TargetsNo targets recorded. Patient Instructions Encounter Date Encounter Id Patient Instructions Last Modified By Organization Details Last Modified Time 08/17/2025 [id number] sore throat in children: care instructions escobar [...] - 71 4 10 - 750 5 [phone] [phone] 6 205 [phone] 7 [phone] 63 8 [phone] 71 9 [phone] 10 10 01390 -8925 77 12 [id number] -[phone] 12 14 [id number] - [id number] 15 54500 - 57743 16 0268 - 29575 17 2820 - 69963 18 9010 - [phone] Yariel ECLIA metho dolog y Not Available [facility] ([facility]) [address] [facility], [place], [address], 08/18/2025 12:08:03 08/17/2008/17/2025 pregn jennifer test, urine HCG negati ve Not Available [address], [address], 08/17/2025 15:58:58 08/17/2008/17/2025 rapid strep group A, throa t Strep negati ve Not Available [address], [address], 08/17/2025 15:34:14 08/17/2008/17/2025 rapid strep group A, throa t Culture No Not Available [address], [address], 08/17/2025 15:34:14 08/24/20 25 08/22/2025 US, danielle t, philip teral No observ ation record ed. [facility] [address], [place], [address], 08/30/2025 10:24:33 Result Notes None recorded. Problems Name Problem SNOMED Code Status Onset Date Resolution Date Notes Provider Name and Address Organization Details Recorded Time Depressive disorder 58439471 Active Nyasia Stoner null, [place] - [facility] 2 10:06:36 Hypothyroi dism 89358932 Active Nyasia Stoner null, [place] - [facility] 2 10:06:48 Chronic constipati on 653584204 Active 2022 Mabel Banks, PROJECT MANAGER RETAIL [address], [place], [address] , [place] - [facility] 3 16:08:34 Low back pain 250711896 Active 2022 Mabel Banks, PROJECT MANAGER RETAIL [address], [place], [address] , [place] [facility] 3 16:10:28 Abdominal pain 75221656 Active 2022 Mabel Banks, PROJECT MANAGER [employer]AIL [address], [place], [address] , [place] [facility] 3 16:10:30 Pain in pelvis 43095189 Active 2022 Mabel Banks PROJECT MANAGER [employer] [address], [place], [address] , [place] [facility] 3 16:11:26 Dysmenorrh ea 926658425 Active 2022 Mabel Banks, PROJECT MANAGER [employer]AIL [address], [place], [address] , [place] [facility] 3 16:11:29 Family history of endometrio sis 5260719804697 05 Active 2022 Mabel Banks, PROJECT MANAGER [employer] [address], [place], [address] , [place] [facility] 3 22:55:07 Deep pain on intercours e 433957505 Active 2022 Mabel Banks, PROJECT MANAGER [employer]AIL [address], [place], [address] , [place] - [facility] 22:59:05 Problem Notes None recorded. Procedures Surgical History Date Name Laterality Status Provider Name and Address Organization Details Recorded Time 11/20/19 removal of subcutaneous contraceptive completed Gabbie Sorensenann [place] - [facility] 01/13/2023 10:52:33 Tonsillectomy completed [...] Address Organization Details Last Updated DateTime 5 26403.8 1 g 71 /min 98 [degF] 99 [...] Have You Had Close Contact With A [facility] [email or web address]-19 While That Case Was Ill? No Information [...] Or The Highest Degree You Have Received? OS57138-1 Information not available 10/03/2022 Have There Been [...] not available 10/03/2022 Last Menstrual Period? 12/17/2022 [email or web address] Information not available 01/15/2023 Do You Have A Medical Power Of Food Processing Chemist? No Information not available 10/03/2022 What Was The Date Of Your Most Recent Tobacco Screening? 08/17/2025 Information not available 08/17/2025 How Many Children Do You Have? 0 Information not available 01/15/2023 What Is Your Relationship Status? [email or web address] Information not available 01/15/2023 Are You Sexually [...] Reported At Start Of This Visit? None [email or web address] Information not available 01/15/2023 Was Counseling Provided To Achieve ? Yes [email or web address] Information not available 01/15/2023 Do You Want To Talk About Contraception Or Prevention During Your Visit Today? No - I Am Hoping To Become In The Near Future [email or web address] Information not available 01/15/2023 Do You Have Any Future Plans To Get ? Yes, I Want To Become [email or web address] Information not available 01/15/2023 What Is Your Reason For Having No Contraceptive Method At Start Of This Visit? 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 No Information not available 10/03/2022 Mental Status Question Answer Note LastModified by Organizat ion Details LastModified Time Do you feel stressed (tense, restless, nervous, or anxious, or unable to sleep at night)? [id number] Information not available 10/03/2022 Do you have difficulty concentrating, remembering or making decisions? No Information no t available 10/03/2022 Are you or have you been involved with bullying? No Information not available 10/03/2022 Family History Relationship Description Onset Age of this Age Resolved Age Notes LastModified by Organization Details LastModified Time Mother Diabetes mellitus [email or web address] Not available 2022 15:24:27 Mother Endometriosi s (clinical) [email or web address] Not available 15:25:07 Mother Disorder of thyroid gland [email or web address] Not available 2022 15:25:47 Maternal Grandfather Myocardial infarction [email or web address] Not available 01/15 15:24:40 Unspecified Relation Hypertensive disorder [email or web address] Not available 2022 10:51:29 Maternal Aunt Endometriosi s (clinical) [email or web address] Not available 15:25:07 Maternal Aunt Endometriosi s (clinical) Not available 15:25:07 Maternal Aunt Disorder of thyroid gland [email or web address] Not available 2022 15:25:47 Maternal Aunt Disorder of thyroid gland [email or web address] Not available 2022 15:25:47 Maternal Aunt Disorder of thyroid gland [email or web address] Not available 2022 15:25:47 Paternal Grandmother Disorder of thyroid gland [email or web address] Not available 2022 15:25:47 Medical History No [...] Recorded Time Tdap 3 completed Not Available [facility] 08/17[facility]2025 15:18:53 Influenza, split virus, quadrivalent, PF 4 completed Not Available [facility] 08/17/2025 15:18:53 varicella 9 completed Nyasia Georgiana [...] ICD10 Code Diagnosis IMO Codes Diagnosis Note [id number] Neva Box APRN [address] [address] 08/17/2025 15:15:49 08/17/2025 16:29:26 Pharyngitis 152469690 J02.9 Missed period 79680749 N 92.6 3123416 check preg if neg do pap next week Breast lump 93623037 N63 .0 3133608 Health Concerns Section Related Observation LastModified by Organization Detai ls LastModified Time None Recorded Concern Status LastModified by Organization Details LastModified Time None Recorded Payers Encounter Date Sequence Insurance Name Policy Number Policy Camilo Covered Member ID Camilo Member ID Guarantor Name 08/17/2025 1 UMR [id number] Abagayle P Fister [id number] Abagayle Fister 08/17/2025 2 [place] [id number] Clarence Fister [id number] Abagayle Fister Notes Date Note Type [...] a pap smear. has missed period Neva Box APRN [address], [place], [address], [place] - [facility] 08/18/2025 15:41:27 OBGyn Episode No OBEpisode recorded.
[2025-09-08 12:46] LABS: Free Thyroxine Index 2.8 ug/dL (5.93-13.13); T4 (Thyroxine) 8.9 ug/dl (5.53-11.0); Triiodothryronine (T3) Uptake 31 % (23.5-40.5)
[2025-09-08 12:59] LABS: Thyroid Stimulating Hormone 3.06 uIU/mL (0.465-4.68)
== END 2025-09-08 23:59 | disposition home or self-care (01) ==
LOC: LAB 10:30
PROVIDERS: PCP Nurse Practitioner Family; Visit Provider Obstetrics & Gynecology
DX: O03.9 Complete or unspecified spontaneous abortion without complication (principal); R23.2 Flushing; Z98.890 Other specified postprocedural states; N80.9 Endometriosis, unspecified
CPT/HCPCS: 36415; 84436; 84443; 84479

== ENCOUNTER 2025-09-26 10:11 | Outpatient (CLI) | payer OTHER, BC, SELFPAY ==
[2025-09-26 14:40] LABS: Coronavirus 19, PCR Not Detected (NotDetected); Influenza A, PCR Not Detected (NotDetected); Influenza B, PCR Not Detected (NotDetected)
== END 2025-09-26 23:59 ==
LOC: LAB.DROPOF 09-28 10:12
PROVIDERS: PCP Nurse Practitioner Family; Visit Provider Student in an Organized Health Care Education/Training Program
DX: M54.9 Dorsalgia, unspecified (principal); J06.9 Acute upper respiratory infection, unspecified
CPT/HCPCS: 87086; 87631

== ENCOUNTER 2025-09-29 10:12 | Emergency (ER) | payer OTHER, BC, SELFPAY ==
[2025-09-29] VITALS (9 sets, daily range): BP systolic 108–127; BP diastolic 67–86; PULSE 70–89; RESP 14–20; TEMP 36.6–36.8; O2SAT 98–100; BMI 30.5
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
--- NOTE | 2025-09-29 10:29 | CT_ITS ---
FINAL REPORT TECHNIQUE: After the administration of oral and intravenous contrast, axial images were obtained through the abdomen and pelvis by computed tomography. The study was performed with techniques to keep radiation dose as low as reasonably achievable, (ALARA). Individual dose reduction techniques using automated exposure control or adjustment of mA and/or kV according to the patient's size were employed. CLINICAL HISTORY: right abdominal pain COMPARISON: 09/22/2024 FINDINGS: Abdomen: The lung bases are clear. The liver parenchyma is homogeneous. The gallbladder is present. The spleen, pancreas, adrenals and kidneys appear unremarkable. The aorta is normal in caliber. There is no free fluid or adenopathy. Pelvis: The appendix is not identified. There is a large amount of stool throughout the colon, particularly the ascending colon. Uterus is present, lies eccentric to the right. Multiple cysts or follicles are seen in both ovaries. The previously noted bladder wall thickening and surrounding stranding is no longer identified. There is no free fluid or adenopathy. IMPRESSION: Large stool burden. Multiple cysts or follicles in both ovaries. Reviewed, Interpreted and Dictated by Mark Collazo MD Transcribed by Taina Das Authenticated and . [facility]
[2025-09-29 10:43] LABS: Microscopic, Urine URINE MICROSCOPIC (MICROSCOPIC)
[2025-09-29 10:55] LABS: Bilirubin,Urine Negative (Negative); Color,Urine YELLOW (Yellow); Glucose,Urine (UA) Negative (Negative); Ketones,Urine Negative (Negative); Leukocyte Esterase,Urine Negative (Negative); PH,Urine 6.5 (5.0-8.5); Protein,Urine Negative (Negative); Specific Gravity, Urine >= 1.030 (1.005-1.030); Urobilinogen,Urine 0.2 EU/dl (0.2)
[2025-09-29] MEDS: ONDANSETRON 4MG/2ML VIAL 4 MG IV (10:57)
[2025-09-29] MEDS: LACTATED RINGERS 1000ML 1,000 ML 999 ML IV (10:57)
[2025-09-29] MEDS: MORPHINE 4MG/ML SYRINGE 4 MG IV (10:58)
[2025-09-29 11:02] LABS: Hematocrit 35.1 % (37.0-47.0); Hemoglobin 11.5 g/dL (12.2-16.2); Immature Granulocytes % 0.3 %; Mean Corpuscular HGB Conc 32.8 g/dL (31.8-35.4); Mean Corpuscular Hemoglobin 25.4 pg (27.0-31.2); Mean Corpuscular Volume 77.7 fl (81-99); Nucleated Red Blood Cells % 0 %; Platelet Count 267 K/mm3 (142-424); Red Blood Count 4.52 M/mm3 (4.20-5.40); Red Cell Distribution Width-SD 42.2 fL; White Blood Count 5.9 K/mm3 (4.8-10.8)
[2025-09-29 11:09] LABS: Albumin Level 4.6 g/dl (3.5-5.0); Chloride 105 mmol/L (98-107); Potassium 3.8 mmoL/L (3.5-5.1); Sodium 144 mmol/L (136-145)
[2025-09-29 11:11] LABS: Blood Urea Nitrogen 12 mg/dl (7-17); Creatinine Clearance Estimated 126 mL/min (50-200); Creatinine,Serum 0.90 mg/dl (0.52-1.04); Estimated Glomerular Filt Rate 79 ml/min (>60); GFR (African American) 96 ML/MIN (>60)
[2025-09-29 11:12] LABS: Alanine Aminotransferase 23 U/L (12-78); Albumin/Globulin Ratio 1.5 (1.1-1.8); Alkaline Phosphatase 53 U/L (38-126); Anion Gap 16.8 mEq/L (5-15); Aspartate Amino Transferase 34 U/L (14-36); Bilirubin,Total 0.4 mg/dl (0.2-1.3); Calcium 9.0 mg/dl (8.4-10.2); Carbon Dioxide 26 mmol/L (22.0-30.0); Globulin 3.1 g/dL (1.3-3.2); Glucose 83 mg/dl (74-100); Lipase 141 U/L (23-300); Total Protein,Serum 7.7 g/dl (6.3-8.2)
[2025-09-29 11:15] LABS: HCG Qualitative, Serum Negative (Negative)
[2025-09-29 11:19] LABS: Bacteria,Urine Trace /lpf; RBC,Urine 20-50 #/hpf (0-3); WBC,Urine Occasional #/hpf (0-3)
[2025-09-29] MEDS: SODIUM CHLORIDE 0.9% 10ML SYR (RAD ONLY) 10 ML IV (11:34)
[2025-09-29] MEDS: IOPAMIDOL-370 (76%);100ML BOTTLE 75 ML IV (11:35)
[2025-09-29 12:53] LABS: Hepatitis C Ab Qual. W/ RFX NEGATIVE (Negative)
== END 2025-09-29 13:55 | disposition home or self-care (01) ==
PROVIDERS: Emergency Provider Student in an Organized Health Care Education/Training Program; PCP Nurse Practitioner Family
DX: R10.13 Epigastric pain (principal); K59.00 Constipation, unspecified
CPT/HCPCS: 74177; 80053; 81001; 83605; 83690; 84703; 85025; 86803; 87389; 96361; 96374; 96375; 99285; J2270; J2405; J7120; Q9967